=== PATIENT | male | born 1985 | race Caucasian/White ===

== ENCOUNTER 2023-10-20 10:20 | Emergency (ER) | payer MEDICAID, SELFPAY ==
--- NOTE | ~2023-10-20 | CT_ITS ---
EXAMINATION: CT ABDOMEN AND PELVIS WITH CONTRAST CLINICAL INFORMATION: Abdominal pain, weight loss, question tumor COMPARISON: None available. TECHNIQUE: Multidetector volumetric images were obtained from the superior aspect of the liver through the pubic symphysis following administration 85 mL of Omnipaque 350 intravenous contrast. Sagittal and coronal reformatted images were obtained on the technologist's workstation. Oral contrast: Yes This CT examination was performed using dose optimization techniques as appropriate, variously including the following: *Automated exposure control *Adjustment of mA and/or kV according to patient size (this includes techniques or standardized protocols for targeted exams where dose is matched to indication/reason for exam; i.e. extremities or head) *Use of iterative reconstruction technique DLP: 517 mGy-cm FINDINGS: LUNG BASES: The visualized lung bases are unremarkable. LIVER, GALLBLADDER, AND BILIARY TREE: The liver is normal in size, shape, and attenuation. No focal hepatic lesion or biliary ductal dilatation is present. The gallbladder is unremarkable with no evidence of radiopaque gallstones, gallbladder wall thickening, or obvious pericholecystic inflammatory changes. PANCREAS: Unremarkable. SPLEEN: Unremarkable. ADRENAL GLANDS: Unremarkable. KIDNEYS AND URETERS: Bilateral nephrograms are symmetric. No hydronephrosis or obstructing calculus identified. Cortical scarring noted in the lateral left kidney. BLADDER: Partially distended and grossly unremarkable. GASTROINTESTINAL TRACT: No evidence of bowel obstruction. Evaluation for wall thickening in some segments of the colon is limited due to luminal collapse. There is soft tissue prominence within a segment of the proximal ascending colon which is not fully distended, for which underlying colonic mass cannot be excluded. The appendix is unremarkable. No free fluid or free air is seen. ABDOMINAL WALL: No significant hernia is appreciated. LYMPH NODES: Normal. VASCULAR: Unremarkable. PELVIC VISCERA: Unremarkable. OSSEOUS STRUCTURES: Unremarkable. CT/CT abdomen pelvis w IV con IMPRESSION: 1. Soft tissue prominence within a segment of the proximal ascending colon which is not fully distended, for which underlying colonic mass cannot be excluded. Correlation with colonoscopy is advised. 2. No additional acute findings identified in the abdomen/pelvis.
[2023-10-20 10:29] VITALS: BP 133/83; PULSE 94; RESP 18; TEMP 36.8; O2SAT 98; BMI 25.9
[2023-10-20 11:00] LABS: MANUAL DIFF FLAG NO
[2023-10-20 11:01] LABS: Appearance Urine Clear; Color Urine Yellow; Glucose Urine UA Negative (Negative); Leukocyte Esterase Urine Negative (Negative); Nitrite Urine Negative (Negative); Urine Blood Negative (Negative); Urine Ketones 15 mg/dL (Negative); Urine Protein Negative (Neg-Trace)
[2023-10-20 11:03] LABS: Basophils Percent Auto 0.4 % (0-2); Eosinophils Percent Auto 0.4 % (0-4); Hematocrit 44.2 % (42.0-52.0); Hemoglobin 14.9 g/dl (14.0-18.0); Imm Gran Abs Auto 0.01 X10*3/uL (0.00-0.03); Imm Gran Pct Auto 0.2 % (0.0-0.4); Lymphocytes Absolute Auto 0.9 X10*3/uL (1.2-4.9); Lymphocytes Percent Auto 16.7 % (20-40); Mean Corpuscular HGB Conc 33.7 g/dl (31.0-36.0); Mean Corpuscular Hemoglobin 26.8 pg (27.0-33.0); Mean Corpuscular Volume 79.6 fL (80.0-98.0); Mean Platelet Volume 8.8 fL (9.4-12.4); Monocytes Absolute Auto 0.3 X10*3/uL (0.1-1.2); Monocytes Percent Auto 4.9 % (2-11); Neutrophils Absolute Auto 3.9 x10*3/uL (2.0-8.3); Neutrophils Percent Auto 77.4 % (45-73); Platelet Count 256 X10*3/uL (160-400); Red Blood Count 5.55 X10*6/uL (4.60-5.80); Red Cell Distribution Width 13.4 % (11.0-16.0); White Blood Count 5.1 X10*3/uL (4.8-10.8)
[2023-10-20 11:17] LABS: Alanine Aminotransferase 19 U/L (0-40); Albumin Level 4.5 g/dL (3.5-5.0); Alkaline Phosphatase 63 U/L (39-117); Anion Gap 14 (12-20); Aspartate Amino Transferase 21 U/L (5-37); Bilirubin Total 0.7 mg/dL (0.0-1.0); Blood Urea Nitrogen 11 mg/dL (9-16); Calcium 10.1 mg/dL (8.4-10.2); Carbon Dioxide 27 mmol/L (22-29); Chloride 105 mmol/L (96-108); Creatinine Clr Calc Pharmacy 113.6; Estimated Glomerular Filt Rate > 60; Glucose Random 116 mg/dL (60-115); Sodium 142 mmol/L (135-145); Total Protein 7.6 g/dL (6.5-8.0)
[2023-10-20 19:15] LABS: Influenza A PCR NEGATIVE (Negative); Influenza B PCR NEGATIVE (Negative); Resp Syncy Virus RNA Qual PCR NEGATIVE (Negative); SARS COV2 PCR INHOUSE NEGATIVE (Negative)
--- NOTE | 2023-10-20 20:16 | ED_ITS ---
HPI - General Adult General Chief complaint: General Medical Stated complaint: vomiting nausea dizzy Time Seen by Provider: 10/20/23 19:47 Source: patient Mode of arrival: ambulatory Limitations: no limitations History of Present Illness HPI narrative: 38-year-old male presents to ED for abdominal pain poor p.o. intake and 40 lb weight loss in 2 months. Patient denies any blood in stool. Patient admits to nausea and vomiting. Patient denies any fever or chills. Patient denies any history of HIV, hep C, or history of cancer. 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 Patient has been in prison for the past 18 years Related Data Previous Rx's ?Medication ?Instructions ?Recorded naproxen 500 mg tablet 500 mg PO BID PRN pain 7 days #14 10/21/23 tabs ondansetron HCl 4 mg tablet 4 mg PO Q6H PRN nausea and 10/21/23 vomiting 2 days #8 tabs Allergies Allergy/AdvReac Type Severity Reaction Status Date / Time No Known Allergies Allergy Verified 10/20/23 10:30 Review of Systems 2 Review of Systems: abdominal pain, weight loss, nausea and vomitting Yes all other systems are reviewed and are negative PMFSH Social History Social History Smoked in Last 30 Days: No Use of substances other than those prescribed or required for medical reasons: No Advance Directives: No Advance Directives Information Provided: No Do you have a plan to hurt others: No Plan Physical Exam ED Vital Signs: Vital Signs - 24 hr 10/20/23 10:29 10/20/23 23:50 Temperature 98.3 F 98.0 F Pulse Rate 94 55 Respiratory Rate 18 16 Blood Pressure 133/83 111/53 L Pulse Oximetry 98 95 Oxygen Delivery Method Room Air Room Air BMI result Body Mass Index 25.9 Const General: cooperative, healthy appearing, comfortable, no acute distress, well developed, alert, awake and Physically active Orientation/consciousness: oriented to person, oriented to place, oriented to time and patient oriented x3 HENMT Head: Yes normal to inspection, Yes No palpable skull fracture present, Yes normocephalic and Yes atraumatic Eyes General: appearance normal, both eyes and all related structures Neck Neck: Yes normal visual inspection, Yes full ROM, Yes no lymphadenopathy, Yes no meningeal signs, Yes trachea midline, Yes supple, No anterior neck swelling and No tender Chest Chest palpation & inspection: normal inspection of the chest and normal palpation of entire chest wall Resp Effort & Inspection: normal respiratory effort and able to speak in complete sentences Auscultation: clear to auscultation bilaterally Cardio Jugular venous distension: no JVD Heart sounds: S1 normal heart sound present and S2 normal heart sound present GI Inspection: Yes normal to inspection Palpation (GI): Soft to palpation, not firm, nontender, no guarding and not rigid General: No CVA tenderness and Yes no CVA tenderness Back/Spine/Pelvis Back: no CVA tenderness, No CVA tenderness and No back tenderness Skin General skin exam: no rashes or lesions noted, elasticity normal and turgor normal Neuro General: oriented to person, oriented to place, oriented to time, patient oriented x3, gait normal, tone normal, moves all extremities, Normal light touch and pain sensation, no meningeal signs, no focal motor deficits, CN's II-XI intact bilaterally and normal sensation to monofilament Extrem General: Yes normal to inspection, Yes full ROM and Yes capillary refill normal Psych Appearance: grossly normal, well kempt and not disheveled Medications Administered Discontinued Medications Generic Name Dose Route Start Last Admin Trade Name Freq PRN Reason Stop Dose Admin Diatrizoate Meglum/Diatrizoate Sod 30 ml 10/20/23 22:49 10/20/23 22:49 Diatrizoate Meglumine, Sodium 30 Ml Solution PO 10/20/23 22:50 30 ml ONCE ONE Administration Iohexol 85 ml 10/20/23 22:53 10/20/23 22:54 Iohexol 350 Mg/Ml 100 Ml Infus..Btl IV 10/20/23 22:54 85 ml ONCE ONE Administration Ondansetron HCl 4 mg 10/21/23 02:12 10/21/23 02:25 Ondansetron Odt 4 Mg Tab.Rapdis TRANSLINGU 10/21/23 02:13 4 mg ONCE ONE Administration Medical Decision Making Medical Decision Making MDM Narrative: 38-year-old male with abdominal pain and weight loss for the past 2 months. Patient apparently not in any distress but due to weight loss abdominal pain was sent for abdominal CT scan to check for any cancer/mass. 1:38am: Patient's abdominal CT scan shows possible colonic mass. Abdomen is benign. Patient made aware of this. Patient informed CT scan reading states she will need a colonoscopy. Patient given copy of CAT scan told to follow-up with primary care provider and sewage reticulation drafting officer. Patient has explained worrisome signs and informed to return to the ED if he has them Differential Diagnosis Differential Diagnoses: The differential diagnosis associated with the presentation includes (colonic mass, Cancer) Admission/Observation Consideration of admission/observation: Escalation of care including admission/observation considered Lab Data MDM Lab Attestation statement: I reviewed the patient's lab results. 10/20/23 10:54 10/20/23 10:54 Labs: Lab Results 10/20/23 10/20/23 10/20/23 Range/Units 10:54 10:55 18:22 WBC 5.1 (4.8-10.8) X10*3/uL RBC 5.55 (4.60-5.80) X10*6/uL Hgb 14.9 (14.0-18.0) g/dl Hct 44.2 (42.0-52.0) % MCV 79.6 L (80.0-98.0) fL MCH 26.8 L (27.0-33.0) pg MCHC 33.7 (31.0-36.0) g/dl RDW 13.4 (11.0-16.0) % Plt Count 256 (160-400) X10*3/uL MPV 8.8 L (9.4-12.4) fL Immature Gran % (Auto) 0.2 (0.0-0.4) % Neut % (Auto) 77.4 H (45-73) % Lymph % (Auto) 16.7 L (20-40) % [place] % (Auto) 4.9 (2-11) % Eos % (Auto) 0.4 (0-4) % Baso % (Auto) 0.4 (0-2) % Lymph # (Auto) 0.9 L (1.2-4.9) X10*3/uL [place] # (Auto) 0.3 (0.1-1.2) X10*3/uL Eos # (Auto) 0.0 (0.0-0.4) X10*3/uL Baso # (Auto) 0.0 (0.0-0.2) X10*3/uL Abs Immat Gran (auto) 0.01 (0.00-0.03) X10*3/uL Absolute Neuts (auto) 3.9 (2.0-8.3) x10*3/uL Absolute Nucleated RBC 0.000 (0.0-0.012) X10*3/uL Nucleated RBC % (auto) 0.0 (0.0-0.2) /100WBC Sodium 142 (135-145) mmol/L Potassium 4.0 (3.3-5.1) mmol/L Chloride 105 (96-108) mmol/L Carbon Dioxide 27 (22-29) mmol/L Anion Gap 14 (12-20) BUN 11 (9-16) mg/dL Creatinine 0.92 (0.5-1.4) mg/dL Estim Creat Clear Calc 113.6 Estimated GFR > 60 Random Glucose 116 H (60-115) mg/dL Calcium 10.1 (8.4-10.2) mg/dL Total Bilirubin 0.7 (0.0-1.0) mg/dL AST 21 (5-37) U/L ALT 19 (0-40) U/L Alkaline Phosphatase 63 (39-117) U/L Total Protein 7.6 (6.5-8.0) g/dL Albumin 4.5 (3.5-5.0) g/dL Urine Color Yellow Urine Appearance Clear Urine pH 6.0 (5.0-9.0) Ur Specific [place] 1.020 (1.005-1.025) Urine Protein Negative (Neg-Trace) mg/dL Urine Glucose (UA) Negative (Negative) mg/dL Urine Ketones 15 (Negative) mg/dL Urine Blood Negative (Negative) Urine Nitrite Negative (Negative) Ur Leukocyte Esterase Negative (Negative) Influenza Type A (PCR) NEGATIVE (Negative) Influenza Type B (PCR) NEGATIVE (Negative) RSV RNA Qual (PCR) NEGATIVE (Negative) SARS-CoV-2 RNA (RT-PCR) NEGATIVE (Negative) Independent Interpretation I performed an independent interpretation of an: CT Scan Radiology Impression Discussion of test interpretation with radiology: I have reviewed the radiologist's reading. Independent Historian Clinical information obtained from an independent historian. History obtained from or confirmed by: Other (Patient) External Record Review External record reviewed: Other (prior viists) Discharge Plan Discharge Clinical Impression: Mass of colon Patient Disposition: Home, Self-Care Instructions: Abdominal Pain (ED) Additional Instructions: CT scan shows possible colonic mass. You will need to follow-up with outpatient provider, and sewage reticulation drafting officer for colonoscopy as recommended by radiologist. Return to the ED for chest pain, shortness of breath, abdominal pain, diarrhea, dysuria, hematuria, flank pain, symptoms. CT/CT abdomen pelvis w IV con IMPRESSION: 1. Soft tissue prominence within a segment of the proximal ascending colon which is not fully distended, for which underlying colonic mass cannot be excluded. Correlation with colonoscopy is advised. 2. No additional acute findings identified in the abdomen/pelvis. Prescriptions: New naproxen 500 mg tablet 500 mg PO BID PRN (Reason: pain) 7 Days Qty: 14 0RF ondansetron HCl 4 mg tablet 4 mg PO Q6H PRN (Reason: nausea and vomiting) 2 Days Qty: 8 0RF Referrals: [facility] [Provider Group] (CT scan shows possible colonic mass will need colonoscopy) Halie Ellison MD [Physician] - (CT scan shows possible colonic mass. Patient has weight loss with abdominal) Stand Alone Forms: Work/School Release Interventions: ED Discharge Assessment Last Done: 10/21/23 02:31 Discharge Date/Time: 10/21/23 02:32 Print Language: Danish
--- NOTE | 2023-10-20 20:57 | PC.NURSE ---
pt from home, a&ox4, respirations even and unlabored, reporting nausea and vomiting x1 week, reports he has had poor PO intake and has been throwing up bile. pt denies diarrhea at this time. pt abdomen soft, non tender to touch. 20G placed in left AC at this time.
[2023-10-20] MEDS: Diatrizoate Meglumine, Sodium 30 ML SOLUTION PO (22:49)
[2023-10-20] MEDS: iohexoL 350 MG/ML 100 ML INFUS..BTL 85 ML IV (22:54)
[2023-10-20 23:50] VITALS: BP 111/53; PULSE 55; RESP 16; TEMP 36.7; O2SAT 95
[2023-10-21] MEDS: Ondansetron ODT 4 MG TAB.RAPDIS TRANSLINGU (02:25)
[2023-10-21 02:31] VITALS: BP 118/68; PULSE 66; RESP 18; TEMP 36.9; O2SAT 98
== END 2023-10-21 02:32 | disposition home or self-care (01) ==
PROVIDERS: Physician Assistant Medical; Emergency Provider Emergency Medicine
DX: R11.2 Nausea with vomiting, unspecified (principal); K63.9 Disease of intestine, unspecified; R93.5 Abnormal findings on diagnostic imaging of other abdominal regions, including retroperitoneum; F19.11 Other psychoactive substance abuse, in remission; Z03.818 Encounter for observation for suspected exposure to other biological agents ruled out
CPT/HCPCS: 0241U; 36415; 74177; 80053; 81003; 85025; 99284; Q9967

== ENCOUNTER 2023-10-29 15:40 | Outpatient (REF) | payer MEDICAID, SELFPAY ==
[2023-11-02 09:23] LABS: H Pylori Breath Test Negative (Negative)
== END 2023-10-29 15:41 | disposition home or self-care (01) ==
LOC: HO.LNP 15:40
PROVIDERS: PCP Internal Medicine; Visit Provider Nurse Practitioner Family
DX: K21.9 Gastro-esophageal reflux disease without esophagitis (principal); K59.1 Functional diarrhea; K63.9 Disease of intestine, unspecified; R10.13 Epigastric pain; R11.2 Nausea with vomiting, unspecified; E55.9 Vitamin D deficiency, unspecified
CPT/HCPCS: 83013; 99212

== ENCOUNTER 2023-10-29 15:40 | Outpatient (AMB) | payer MEDICAID, SELFPAY ==
--- NOTE | 2023-10-29 15:51 | A.OFFVIS_ITS ---
Vital Signs 10/29/23 15:52 Height 5 ft 11 in Weight 180 lb BMI 25.1 BP 107/69 Blood Pressure Location Lt brachial Position Sitting Pulse 67 Intake Visit Reasons: Colonic MAss Intake Note: Luciano presents in the office as a new patient for a colonic mass. CC: states that he was diagnosed with a mass, nausea, vomiting, constantly - cannot eat or sleep and he is losing weight. Has pains on the left side of his back and flank area. He states that he has urine that has blood in it and that he is dealing with dizziness. States that he has diarrhea. Lost 40lbs in the last month and a half and not enough fluids and nutrition going into his body. Allergies No Known Allergies Allergy (Verified 10/29/23 15:53) HPI HPI Colonic MAss: Details: 2-year-old male with no significant past medical history except for opioid use, clean for the last 2 years is here today for initial consultation. Patient is accompanied by his significant other. Patient was seen October 19 in the ER for severe abdominal pain. Patient has been suffering with epigastric pain inability to eat, nausea and vomiting for the past month and a half. Patient states that he lost 40 lb since then. Patient reports that he is unable to eat anything. No matter what he eats it causes epigastric discomfort, nausea and vomiting. Patient reports postprandial loose stools. Patient denies melena, hematochezia. Patient had no leukocytosis when seen in the ER on October 19. Normal liver enzymes. Lipase was not checked. Patient had CT scan that showed possible mass in ascending colon. Patient denies any family history of colorectal cancer. No issues with anesthesia in the past. Patient is not on any anticoagulation medication. No history of sleep apnea. [facility] [place] Family History (Updated 10/29/23 @ 15:54 by MICHELLE Ramos) Paternal Grandfather Colon cancer Paternal Grandfather Colon cancer Paternal Aunt Colon cancer Review of Systems Const Denies weight gain and Denies weight loss ENT Reports no additional complaints, Denies dysphagia and Denies odynophagia Card Reports no additional complaints Resp Reports no additional complaints GI Reports abdominal pain (Epigastric and left upper quadrant), Denies belching, Denies melena, Denies bloating, Denies change in bowel habits, Denies dysphagia, Denies excessive flatus, Reports dyspepsia, Reports heartburn, Denies diarrhea, Reports loose stools, Reports nausea, Denies odynophagia and Reports vomiting Reports no additional complaints Musc Reports no additional complaints Neuro Reports no additional complaints Psych Reports no additional complaints Endo Reports no additional complaints Physical Exam Vital Signs: BMI result Body Mass Index 25.1 Const General: healthy appearing, no acute distress and well developed Nutritional Appearance: well nourished Orientation/consciousness: patient oriented x3 Resp Effort & Inspection: normal respiratory effort, able to speak in complete sentences, no tracheal deviation and symmetric chest movement Auscultation: clear to auscultation bilaterally Cardio Rate: regular rate GI Inspection: Yes normal to inspection and No distended Palpation (GI): Soft to palpation, not firm, nontender and No hepatosplenomegaly present Auscultation: normal bowel sounds General: Yes no CVA tenderness Back/Spine/Pelvis Back: no CVA tenderness Skin General skin exam: elasticity normal, turgor normal and dry skin Neuro General: patient oriented x3 Psych Appearance: grossly normal Mental Status: mental status grossly normal Results Reviewed Results Reviewed: CT OF ABDOMEN AND PELVIS FINDINGS: LUNG BASES: The visualized lung bases are unremarkable. LIVER, GALLBLADDER, AND BILIARY TREE: The liver is normal in size, shape, and attenuation. No focal hepatic lesion or biliary ductal dilatation is present. The gallbladder is unremarkable with no evidence of radiopaque gallstones, gallbladder wall thickening, or obvious pericholecystic inflammatory changes. PANCREAS: Unremarkable. SPLEEN: Unremarkable. ADRENAL GLANDS: Unremarkable. KIDNEYS AND URETERS: Bilateral nephrograms are symmetric. No hydronephrosis or obstructing calculus identified. Cortical scarring noted in the lateral left kidney. BLADDER: Partially distended and grossly unremarkable. GASTROINTESTINAL TRACT: No evidence of bowel obstruction. Evaluation for wall thickening in some segments of the colon is limited due to luminal collapse. There is soft tissue prominence within a segment of the proximal ascending colon which is not fully distended, for which underlying colonic mass cannot be excluded. The appendix is unremarkable. No free fluid or free air is seen. ABDOMINAL WALL: No significant hernia is appreciated. LYMPH NODES: Normal. VASCULAR: Unremarkable. PELVIC VISCERA: Unremarkable. OSSEOUS STRUCTURES: Unremarkable. CT/CT abdomen pelvis w IV con IMPRESSION: 1. Soft tissue prominence within a segment of the proximal ascending colon which is not fully distended, for which underlying colonic mass cannot be excluded. Correlation with colonoscopy is advised. 2. No additional acute findings identified in the abdomen/pelvis. Assessment & Plan Assessment & Plan (1) Postprandial epigastric pain: Code(s): R10.13 - Epigastric pain (2) GERD (gastroesophageal reflux disease): Code(s): K21.9 - Gastro-esophageal reflux disease without esophagitis Qualifiers: Esophagitis presence: esophagitis presence not specified Qualified Code(s): K21.9 - Gastro-esophageal reflux disease without esophagitis (3) Nausea: Code(s): R11.0 - Nausea (4) Vomiting: Code(s): R11.10 - Vomiting, unspecified Qualifiers: Vomiting type: unspecified Nausea presence: with nausea Qualified Code(s): R11.2 - Nausea with vomiting, unspecified (5) Diarrhea: Code(s): R19.7 - Diarrhea, unspecified Qualifiers: Diarrhea type: functional diarrhea Qualified Code(s): K59.1 - Functional diarrhea (6) Colon abnormality: Code(s): K63.9 - Disease of intestine, unspecified Plan Patient will be scheduled to go for colonoscopy. We were able to schedule him for next with Dr. Rojas. Patient will also go for upper endoscopy as he is had experiencing nausea and vomiting and epigastric discomfort. We will rule out gastritis, duodenitis, esophagitis, gastric or peptic ulcer, H pylori, Singleton's. Patient is not taking any PPIs or H2 blockers at this time. Patient will start omeprazole in the morning half an hour before breakfast and sucralfate at noon time and bedtime.. Patient will have H pylori breath test d one in the office today. Will rule out chronic pancreatitis, celiac, pancreatic insufficiency. Will check thyroid and vitamin D, B12 and folate. What to expect before during and after procedure discussed with him and his girlfriend. Stressed the importance of good bowel prep and clear liquid diet. Patient will follow-up with us after the procedure. Both patient and his girlfriend are agreeable to plan of care and verbalizes understanding of instructions. They were given the opportunity to ask questions and all questions answered. Thank you for allowing me to participate in his care Orders: Orders Pancreatic Elastase-1 Today R10.9 - Unspecified abdominal pain Lipase Today R10.9 - Unspecified abdominal pain TSH reflex Free T4 Today K59.1 - Functional diarrhea, R11.0 - Nausea Transglutaminase Ab IgG Today R10.9 - Unspecified abdominal pain Transglutaminase IgA Today R10.9 - Unspecified abdominal pain Vitamin D 25-OH (D2 and D3) Today E55.9 - Vitamin D deficiency, unspecified H Pylori Breath Test Today K21.9 - Gastro-esophageal reflux disease without esophagitis Vitamin B12 and Folate Today R19.7 - Diarrhea, unspecified Medications: New bisacodyl (Dulcolax (bisacodyl)) take 4 tabs at noon the day before your colonoscopy 20 mg (4 x 5 mg) PO ONCE 1 day 4 tabs 0RF Z12.11 - Encounter for screening for malignant neoplasm of colon omeprazole 40 mg PO DAILY 60 caps 3RF K21.9 - Gastro-esophageal reflux disease without esophagitis sucralfate 1 g PO BID 60 tabs 2RF R19.7 - Diarrhea, unspecified polyethylene glycol 3350 (Miralax) As directed by gastroenterology department at [facility] 238 grams PO ONCE 238 grams 0RF K63.9 - Disease of intestine, unspecified Coding Level of Care Code New Pt Level 4 (86644) Diagnoses Postprandial epigastric pain R10.13 Gastroesophageal reflux disease, unspecified whether esophagitis present K21.9 Esophagitis presence: esophagitis presence not specified Nausea R11.0 Nausea and vomiting, unspecified vomiting type R11.2 Vomiting type: unspecified Nausea presence: with nausea Functional diarrhea K59.1 Diarrhea type: functional diarrhea Colon abnormality K63.9 Time Spent (min) 45 Comment 30 minutes spent with patient and additional 15 minutes spent reviewing his records
[2023-10-29 15:52] VITALS: BP 107/69; PULSE 67; BMI 25.1
== END 2023-10-29 16:32 | disposition home or self-care (01) ==
PROVIDERS: PCP Internal Medicine; Visit Provider Nurse Practitioner Family
DX: R10.13 Epigastric pain (principal); K21.9 Gastro-esophageal reflux disease without esophagitis; R11.0 Nausea; R11.2 Nausea with vomiting, unspecified; K59.1 Functional diarrhea; K63.9 Disease of intestine, unspecified
CPT/HCPCS: 99204

== ENCOUNTER 2023-11-04 11:55 | Outpatient (REF) | payer MEDICAID, SELFPAY ==
[2023-11-04 13:46] LABS: Lipase 43 U/L (8-78)
[2023-11-04 13:52] LABS: TSH reflex Free T4 0.55 uIU/mL (0.32-4.0)
[2023-11-04 14:18] LABS: Folate 5.1 ng/mL (> or = 4.0); Vitamin B12 425 pg/mL (200-900)
[2023-11-07 13:09] LABS: Transglutaminase Ab IgG <1.0 U/mL; Transglutaminase IgA <1.0 U/mL
[2023-11-08 14:24] LABS: Vitamin D 25-OH, D2 5 ng/mL; Vitamin D 25-OH, D3 18 ng/mL; Vitamin D 25-OH, Total 23 ng/mL (30-100)
== END 2023-11-04 11:56 | disposition home or self-care (01) ==
LOC: HO.LAB 11:55
PROVIDERS: PCP Internal Medicine; Visit Provider Nurse Practitioner Family
DX: R10.9 Unspecified abdominal pain (principal); E55.9 Vitamin D deficiency, unspecified; R11.0 Nausea; K59.1 Functional diarrhea
CPT/HCPCS: 36415; 82306; 82607; 82746; 83690; 84443; 86364

== ENCOUNTER 2023-11-05 10:58 | Outpatient (REF) | payer MEDICAID, SELFPAY ==
[2023-11-13 19:58] LABS: Pancreatic Elastase-1 92 mcg/g
== END 2023-11-05 10:59 | disposition home or self-care (01) ==
LOC: HO.LNP 10:58
PROVIDERS: Visit Provider Nurse Practitioner Family
DX: R10.9 Unspecified abdominal pain (principal)
CPT/HCPCS: 82656

== ENCOUNTER 2023-11-06 07:09 | Day surgery (SDC) | payer MEDICAID, SELFPAY ==
[2023-11-05 07:48] VITALS: BMI 25.1
--- NOTE | 2023-11-05 11:44 | HO.ANESPROP2 ---
HPI - Anesthesia Eval Consult details Narrative: 38yo M for Colonoscopy Suboxone daily PMFSH Family History Family History (Updated 10/29/23 @ 15:54 by MICHELLE Ramos) Paternal Grandfather Colon cancer Paternal Grandfather Colon cancer Paternal Aunt Colon cancer Meds Allergies Allergy/AdvReac Type Severity Reaction Status Date / Time No Known Allergies Allergy Verified 10/29/23 15:53 Home Medications ?Medication ?Instructions ?Recorded ?Confirmed ?Last Taken ?Type buprenorphine 8 mg-naloxone 2 mg 2 film sublingual DAILY 10/29/23 Unknown History sublingual film (Suboxone) bupropion HCl 150 mg 24 hr tablet, 150 mg PO QAM 10/29/23 Unknown History extended release citalopram 20 mg tablet 20 mg PO QAM 10/29/23 Unknown History Exam Height,Weight and Vital Signs: Height 5 ft 11 in Weight 81.647 kg Pertinent Lab Results Pertinent Lab Results: Laboratory Tests 10/20/23 10:54 WBC 5.1 Hgb 14.9 Hct 44.2 Plt Count 256 Sodium 142 Potassium 4.0 Chloride 105 Carbon Dioxide 27 BUN 11 Creatinine 0.92 Assessment and Plan Assessment Anesthesia Assessment: Chart Reviewed
[2023-11-06 07:28] VITALS: BP 108/75; PULSE 70; RESP 18; TEMP 36.4; O2SAT 97; BMI 23.7
[2023-11-06 07:32] VITALS: BMI 23.7
--- NOTE | 2023-11-06 07:42 | MHC.SHP ---
Pre-Procedural Eval Section A - 24 Hr Update-Section A only Date of Service: 11/06/23 Section B - Complete if H&P > 30 days Chief Complaint: Other specified diseases of intestine Details of Present Illness: Fh of CRC Relevant Family History (Specify if Yes): Yes Relevant Social History: Other (specify) (thc) Present Medications: see Short Stay Collaborative assessment Medical History: Significant History (depression) History of Previous Operations: No relevant previous surgery Allergies: Allergies Allergy/AdvReac Type Severity Reaction Status Date / Time No Known Allergies Allergy Verified 11/06/23 07:28 Review of Systems Sugical H&P ROS: Negative: Constitution, Cardiovascular, Respiratory, Neurological, Psychiatric, Hem-Onc, Allergic/Immunologic, Gastrointestinal, Genitourinary, Musculoskeletal, Integumentary, Endocrine and Eyes/Ears/Nose/Throat Exam Surgical H&P Exam: Normal: HEENT, Normal: Heart, Normal: Lungs, Normal: Extremities, Normal: Abdomen, Normal: Skin and Normal: Neurological Plan Diagnosis/Plan: Unchanged I have reviewed the history and physical and performed a pertinent physical examination on my patient. No changes have occurred unless specified. Time Spent With Patient Time: Total time managing care of this patient today ____ minutes.
[2023-11-06] MEDS: Lactated Ringers 1,000 ML 100 ML IVCONT (07:55)
[2023-11-06] MEDS: Albuterol Sulfate (0.083%) 2.5 MG/3 ML VIAL.NEB INHALE (08:00)
[2023-11-06 08:02] VITALS: PULSE 64; RESP 18; O2SAT 97
--- NOTE | 2023-11-06 08:25 | HO.OPN-COLON ---
Colonoscopy Operative Note Operative Note Date of Service: 11/06/23 Narrative: Operative Information Procedure Description: EGD, Colonoscopy Indication: nausea, abn colonic imaging Anesthesia: MAC FLEXIBLE TRANSORAL UPPER GASTROINTESTINAL ENDOSCOPY AND COLONOSCOPY PROCEDURE NOTE UPPER ENDOSCOPY Consent: Indications for the procedure and potential complications of bleeding, perforation, reaction to medications and missed diagnosis were discussed with the patient and informed consent was obtained. Instrument: Olympus GIF H 190 J mid size upper endoscope Monitoring: Vital signs and clinical assessment, continuous EKG monitoring, Pulse oximetry, Carbon Dioxide monitoring and blood pressure monitoring were done throughout the procedure. Procedure: The patient was placed in the left lateral decubitis position and pre-procedure medications were administered and a bite block was placed. The endoscope was inserted into the mouth and advanced under direct vision to the third part of duodenum. A careful inspection was made as the upper endoscope was withdrawn including a retroflexed examination of the proximal stomach; Findings and interventions are described below. Findings: Larynx:normal Esophagus: GE junction at 40 cm, diaphragm hiatus at 42 cm, consistent with 2 cm sliding hiatal hernia with esophagitis noted at GEJ, bx taken, also possible short segment barretts, bx taken from distal and proximal esophagus. Stomach: Mild erythema. Biopsies were obtained. Grade 2 flap valve on retroflexed examination of the cardia. Duodenum: Normal bulb and descending duodenum, bx taken Intervention: Biopsies as noted above, COLONOSCOPY Instrument: Olympus variable stiffness pediatric scope 190L Colonoscopy Monitoring: Vital signs and clinical assessment, continuous EKG monitoring, Pulse oximetry, Carbon Dioxide monitoring and blood pressure monitoring were done throughout the procedure. Colon withdrawal time was 10 minutes. Procedure: The patient was placed in the left lateral decubitis position and pre-procedure medications were administered. After a digital rectal examination of the ano-rectum, the video colonoscope was inserted into the rectum and advanced through the colon to the cecum/TI. The colonoscope was slowly withdrawn in a retrograde panoramic fashion and the colon mucosa was carefully examined including a retroflexed view of the rectum. Findings and interventions are described below. Procedure Difficulty:moderate Findings: Terminal Ileum-normal Cecum:normal right sided retroflexion-- normal, no masses seen Ascending Colon: normal Transverse Colon -normal Descending Colon:normal Sigmoid Colon: normal Rectum: Retroflexion with small internal hemorrhoids, grade I Anorectum - normal Colon preparation: [place] Bowel Preparation Scale Right colon; 2 Transverse colon: 2 Left colon; 1-2 (0 = Unprepared colon segment with mucosa not seen due to solid stool that cannot be cleared. 1 = Portion of mucosa of the colon segment seen, but other areas of the colon segment not well seen due to staining, residual stool and/or opaque liquid. 2 = Minor amount of residual staining, small fragments of stool and/or opaque liquid, but mucosa of colon segment seen well. 3 = Entire mucosa of colon segment seen well with no residual staining, small fragments of stool or opaque liquid) Impression and Post Procedure Diagnosis: Endoscopy Findings: small hiatal hernia esophagitis possible barretts Colonoscopy Findings: internal hemorrhoids Plan: Await Pathology results Repeat Colonoscopy in 5 years due to FH of CRC and fair prep on left or earlier if clinically indicated High fiber diet leaflet avoid straining at stool, epsom salts and sitz bath, anusol supps or cream if ongoing sx, consider GES and cannabis abstinence trial Above findings were reviewed with the patient and relevant handouts were provided if indicated.
[2023-11-06 09:15] VITALS: BP 114/65; PULSE 66; RESP 16; TEMP 36.4; O2SAT 97
[2023-11-06 09:30] VITALS: BP 127/77; PULSE 65; RESP 18; TEMP 36.4; O2SAT 99
== END 2023-11-06 10:12 | disposition home or self-care (01) ==
PROVIDERS: Visit Provider Internal Medicine Gastroenterology
PROC: (CPT 43239; principal; 2023-11-06 08:20)
DX: K29.60 Other gastritis without bleeding (principal); K21.00 Gastro-esophageal reflux disease with esophagitis, without bleeding; K44.9 Diaphragmatic hernia without obstruction or gangrene; R93.3 Abnormal findings on diagnostic imaging of other parts of digestive tract; K64.0 First degree hemorrhoids; K63.89 Other specified diseases of intestine; R11.2 Nausea with vomiting, unspecified; R13.10 Dysphagia, unspecified; R19.7 Diarrhea, unspecified; F12.90 Cannabis use, unspecified, uncomplicated; F17.210 Nicotine dependence, cigarettes, uncomplicated; Z86.010 Personal history of colon polyps; F11.20 Opioid dependence, uncomplicated; Z79.899 Other long term (current) drug therapy
CPT/HCPCS: 43239; 45378; 88305; 88313; 88342; 94640; J1596; J2704

== ENCOUNTER → 2023-11-06 07:09 | Outpatient (BNV) | payer MEDICAID, SELFPAY | PROVIDERS: Visit Provider Internal Medicine Gastroenterology | DX: R11.0 Nausea (principal); R93.3 Abnormal findings on diagnostic imaging of other parts of digestive tract; K20.90 Esophagitis, unspecified without bleeding; K29.70 Gastritis, unspecified, without bleeding; K64.0 First degree hemorrhoids | CPT/HCPCS: 43239; 45378 ==

== ENCOUNTER 2023-12-26 10:04 | Outpatient (REF) | payer MEDICAID, SELFPAY ==
[2023-12-29 04:50] LABS: Syphilis Screen Nonreactive (Nonreactive)
[2023-12-29 05:26] LABS: HBS Num1 > 1000.00 mIU/mL (0-7.99); HBc Num1 0.08 S/CO (0.00-0.79); HBsAGNum1 0.25 S/CO (0.00-0.99); HIV AB/AG Nonreactive (Nonreactive); HIV Num 1 0.07 S/CO (0.00-0.99); Hepatitis A Antibody IgM 0.14 Index (0-0.79); Hepatitis B Core Antibody Nonreactive (Nonreactive); Hepatitis B Surface Antigen Negative (Negative); ~HepC Num1 0.08 S/CO (0.00-0.79); ~Hepatitis A Antibody IgM Nonreactive (Nonreactive); ~Hepatitis B Surface Antibody REACTIVE (Nonreactive); ~Hepatitis C Antibody Nonreactive (Nonreactive)
== END 2023-12-26 10:05 | disposition home or self-care (01) ==
LOC: HO.LAB 10:04
PROVIDERS: Visit Provider Nurse Practitioner Family
DX: Z11.4 Encounter for screening for human immunodeficiency virus [HIV] (principal); R79.89 Other specified abnormal findings of blood chemistry; R11.0 Nausea; R11.10 Vomiting, unspecified; R10.13 Epigastric pain; K21.9 Gastro-esophageal reflux disease without esophagitis; R11.15 Cyclical vomiting syndrome unrelated to migraine; K59.1 Functional diarrhea; K63.9 Disease of intestine, unspecified
CPT/HCPCS: 36415; 86704; 86706; 86709; 86780; 86803; 87340; 87389; 99212

== ENCOUNTER 2023-12-26 10:04 | Outpatient (AMB) | payer MEDICAID, SELFPAY ==
--- NOTE | 2023-12-26 10:08 | MHC.OFFVIS ---
Vital Signs 12/26/23 10:10 Height 5 ft 11 in Weight 155 lb BMI 21.6 BP 96/56 L Blood Pressure Location Lt brachial Position Sitting Pulse 97 Intake Visit Reasons: s/p egd and colo Intake Note: Patient follow up for EGD/Colonoscopy Patient cc: dizzy, pain on upper abdominal, N/V, constipation, loosing a lot of weight and hot flashes. Allergies No Known Allergies Allergy (Verified 12/26/23 10:08) HPI HPI s/p egd and colo: Details: LAST VISIT Postprandial epigastric pain GERD (gastroesophageal reflux disease) Nausea Vomiting Diarrhea Colon abnormality Plan Patient will be scheduled to go for colonoscopy. We were able to schedule him for next with Dr. Rojas. Patient will also go for upper endoscopy as he is had experiencing nausea and vomiting and epigastric discomfort. We will rule out gastritis, duodenitis, esophagitis, gastric or peptic ulcer, H pylori, Singleton's. Patient is not taking any PPIs or H2 blockers at this time. Patient will start omeprazole in the morning half an hour before breakfast and sucralfate at noon time and bedtime.. Patient will have H pylori breath test done in the office today. Will rule out chronic pancreatitis, celiac, pancreatic insufficiency. Will check thyroid and vitamin D, B12 and folate. What to expect before during and after procedure discussed with him and his girlfriend. Stressed the importance of good bowel prep and clear liquid diet. Patient will follow-up with us after the procedure. Both patient and his girlfriend are agreeable to plan of care and verbalizes understanding of instructions. They were given the opportunity to ask questions and all questions answered. ? Thank you for allowing me to participate in his care Orders Orders Pancreatic Elastase-1 Today R10.9 Lipase Today R10.9 TSH reflex Free T4 Today K59.1, R11.0 Transglutaminase Ab IgG Today R10.9 Transglutaminase IgA Today R10.9 Vitamin D 25-OH (D2 and D3) Today E55.9 H Pylori Breath Test Today K21.9 Vitamin B12 and Folate Today R19.7 Medications New bisacodyl (Dulcolax (bisacodyl)) take 4 tabs at noon the day before your colonoscopy 20 mg (4 x 5 mg) PO ONCE 1 day 4 tabs 0RF Z12.11 omeprazole 40 mg PO DAILY 60 caps 3RF K21.9 sucralfate 1 g PO BID 60 tabs 2RF R19.7 polyethylene glycol 3350 (Miralax) As directed by gastroenterology department at [facility] 238 grams PO ONCE 238 grams 0RF K63.9 UPPER ENDOSCOPY AND COLONOSCOPY Findings: Larynx:normal Esophagus: GE junction at 40 cm, diaphragm hiatus at 42 cm, consistent with 2 cm sliding hiatal hernia with esophagitis noted at GEJ, bx taken, also possible short segment barretts, bx taken from distal and proximal esophagus. Stomach: Mild erythema. Biopsies were obtained. Grade 2 flap valve on retroflexed examination of the cardia. Duodenum: Normal bulb and descending duodenum, bx taken Intervention: Biopsies as noted above, Findings: Terminal Ileum-normal Cecum:normal right sided retroflexion-- normal, no masses seen Ascending Colon: normal Transverse Colon -normal Descending Colon:normal Sigmoid Colon: normal Rectum: Retroflexion with small internal hemorrhoids, grade I Anorectum - normal Colon preparation: [place] Bowel Preparation Scale Right colon; 2 Transverse colon: 2 Left colon; 1-2 (0 = Unprepared colon segment with mucosa not seen due to solid stool that cannot be cleared. 1 = Portion of mucosa of the colon segment seen, but other areas of the colon segment not well seen due to staining, residual stool and/or opaque liquid. 2 = Minor amount of residual staining, small fragments of stool and/or opaque liquid, but mucosa of colon segment seen well. 3 = Entire mucosa of colon segment seen well with no residual staining, small fragments of stool or opaque liquid) Impression and Post Procedure Diagnosis: Endoscopy Findings: small hiatal hernia esophagitis possible barretts Colonoscopy Findings: internal hemorrhoids Plan: Await Pathology results Repeat Colonoscopy in 5 years due to FH of CRC and fair prep on left or earlier if clinically indicated High fiber diet leaflet avoid straining at stool, epsom salts and sitz bath, anusol supps or cream if ongoing sx, consider GES and cannabis abstinence trial PATHOLOGY RESULTS Diagnosis A. Duodenum, biopsy: Duodenal mucosa with preserved villi and no specific change. B. Stomach, biopsy: Gastric and antral mucosa with focal minimal chronic inactive inflammation; negative for H pylori, intestinal metaplasia and dysplasia. C. Gastroesophageal junction, biopsy: Squamocolumnar mucosa with minimal chronic inflammation; negative for intestinal metaplasia and dysplasia. D. Esophagus, distal, biopsy: Squamous mucosa with focal intraepithelial neutrophils and eosinophils (up to 2 per high-power field) consistent with esophagitis; no columnar mucosa present. E. Esophagus, proximal, biopsy: Squamous mucosa with no specific change; no columnar mucosa present. TODAY'S VISIT Patient is here today for follow-up accompanied by his girlfriend to discuss upper endoscopy and colonoscopy results. Patient denies any ill effects from the prep, anesthesia or procedure itself. Patient had blood work done as well as stool study that showed low vitamin D level as well as show pancreatic insufficiency. Patient reports that Creon was helping him in the very beginning, however now it seems like it has not working. Patient reports that he is taking with food. Patient has immediate epigastric pain that radiates to his back, sharp stabbing and burning like pain any times he eats anything. Patient reports to be feeling nauseous, occasional vomiting. He states that he is moving his bowels without any trouble. He is however on Suboxone and had suboptimal prep to left side of his colon suggesting that possibly patient is not emptying his bowels well patient reports that he just started smoking marijuana to help him, however his symptoms are not getting better med affect are getting worse. Patient is still losing weight unable to keep anything down. Reports dizziness, fogginess and weakness. [facility] Surgical History Hx of colonoscopy History of esophagogastroduodenoscopy (EGD) Family History Paternal Grandfather Colon cancer Paternal Grandfather Colon cancer Paternal Aunt Colon cancer Social History Patient Tobacco Use Status: Current everyday Tobacco user Tobacco use type: Cigarette Cigarette Packs Per Day: 0.5 Cigarettes Per Day: 10.0 Review of Systems Const Denies weight gain and Reports weight loss ENT Reports no additional complaints, Reports dysphagia and Denies odynophagia Card Reports no additional complaints Resp Reports no additional complaints GI Reports abdominal pain (Epigastric and left upper quadrant), Denies belching, Denies melena, Reports bloating, Denies change in bowel habits, Reports constipation, Reports dysphagia, Denies excessive flatus, Reports dyspepsia, Reports heartburn, Denies diarrhea, Reports loose stools, Reports nausea, Denies odynophagia and Reports vomiting Reports no additional complaints Musc Reports no additional complaints Neuro Reports no additional complaints Psych Reports no additional complaints Endo Reports no additional complaints Physical Exam Vital Signs: Last Vital Signs Pulse 97 12/26/23 10:10 BP 96/56 L 12/26/23 10:10 BMI result Body Mass Index 21.6 Const General: healthy appearing and no acute distress Orientation/consciousness: patient oriented x3 Resp Effort & Inspection: normal respiratory effort, able to speak in complete sentences, no tracheal deviation and symmetric chest movement Auscultation: clear to auscultation bilaterally Cardio Rate: regular rate GI Inspection: Yes normal to inspection and No distended Palpation (GI): Soft to palpation, not firm, nontender and No hepatosplenomegaly present Auscultation: normal bowel sounds General: Yes no CVA tenderness Back/Spine/Pelvis Back: no CVA tenderness Skin General skin exam: elasticity normal, turgor normal and dry skin Neuro General: patient oriented x3 Psych Appearance: grossly normal Mental Status: mental status grossly normal Results Reviewed Results Reviewed: Laboratory Tests 10/20/23 10/29/23 11/04/23 10:54 16:30 12:15 RBC 5.55 Hgb 14.9 Hct 44.2 MCV 79.6 L MCH 26.8 L Lipase 43 Vitamin B12 425 25-OH Vitamin D Total 23 L Folate 5.1 TSH 0.55 Stool Pancreat Elastase Tiss Transglutamin IgG <1.0 Tiss Transglutamin IgA <1.0 H. pylori Breath Test Negative 11/05/23 08:00 RBC Hgb Hct MCV MCH Lipase Vitamin B12 25-OH Vitamin D Total Folate TSH Stool Pancreat Elastase 92 L Tiss Transglutamin IgG Tiss Transglutamin IgA H. pylori Breath Test Assessment & Plan Assessment & Plan (1) Postprandial epigastric pain: Code(s): R10.13 - Epigastric pain (2) GERD (gastroesophageal reflux disease): Code(s): K21.9 - Gastro-esophageal reflux disease without esophagitis Qualifiers: Esophagitis presence: without esophagitis Qualified Code(s): K21.9 - Gastro-esophageal reflux disease without esophagitis (3) Nausea: Code(s): R11.0 - Nausea (4) Vomiting: Code(s): R11.10 - Vomiting, unspecified Qualifiers: Vomiting type: cyclical vomiting syndrome unrelated to migraine Qualified Code(s): R11.15 - Cyclical vomiting syndrome unrelated to migraine (5) Diarrhea: Code(s): R19.7 - Diarrhea, unspecified Qualifiers: Diarrhea type: functional diarrhea Qualified Code(s): K59.1 - Functional diarrhea (6) Colon abnormality: Code(s): K63.9 - Disease of intestine, unspecified Plan Continues to have epigastric pain postprandially no matter what he eats. Unable to keep food down. Will start him on Nexium and stop omeprazole. Avoid dietary triggers, eat small meals and more often. Try to hold off on smoking marijuana for now and use capsaicin to help with epigastric pain and burning. Will do upper GI small-bowel study to check for reflux, hernia. Will check HIV, hepatitis study to rule out any infectious diseases. MRI of the head to check for cause of nausea, vomiting, dizziness and mental fogginess. Patient will be referred to dietitian to help with meal planning. For now patient was encouraged to try high caloric meals that include protein shakes. Patient does not like the consistency of protein shakes encouraged to add frozen foods like blueberries to change the consistency. Increase Creon to 2 capsules with meals. Zofran ordered for nausea. Patient will follow-up in our office in 2 months. He will call if his symptoms will get worse. Patient was also encouraged to go to ER if he is unable to keep food down for IV therapy. Both patient and his partner are agreeable to plan of care and verbalizes understanding of instructions. They were given the opportunity to ask questions and all questions answered. Thank you for allowing me to participate in his care Orders: Orders HIV Ab/Ag 12/26/23 R79.89 - Other specified abnormal findings of blood chemistry Syphilis Screen 12/26/23 R11.0 - Nausea, R11.10 - Vomiting, unspecified [place] upper GI small bowel 12/26/23 K21.9 - Gastro-esophageal reflux disease without esophagitis, R10.13 - Epigastric pain, R11.0 - Nausea, R11.10 - Vomiting, unspecified Hepatitis A,B,C Profile 12/26/23 R79.89 - Other specified abnormal findings of blood chemistry MR angio head wo/w con 12/26/23 R11.0 - Nausea, R11.10 - Vomiting, unspecified, R42 - Dizziness and giddiness, R51.9 - Headache, unspecified, R53.1 - Weakness Referrals [employer] Nutrition Referral R11.0 - Nausea, R63.4 - Abnormal weight loss Medications: New esomeprazole magnesium (Nexium) 40 mg PO DAILY 30 caps 5RF K21.9 - Gastro-esophageal reflux disease without esophagitis capsaicin 0.1% do not wash area for at least 30 min after application 1 appl topical BID 42.5 grams 0RF M79.2 - Neuralgia and neuritis, unspecified, R11.10 - Vomiting, unspecified Changed From [id number] 36,000-114,000- 180,000 unit (Creon) administer with meals and/or snacks 1 cap PO QID 120 caps 3RF K86.89 - Other specified diseases of pancreas To [id number] 36,000-114,000- 180,000 unit (Creon) administer with meals and/or snacks 2 caps PO QID 240 caps 3RF K86.89 - Other specified diseases of pancreas From ondansetron HCl 4 mg PO Q6H 2 days PRN 8 tabs 0RF nausea and vomiting To ondansetron HCl 4 mg PO Q6H PRN 30 tabs 0RF nausea and vomiting Discontinued bisacodyl (Dulcolax (bisacodyl)) take 4 tabs at noon the day before your colonoscopy Discontinued Reason: Patient no longer taking 20 mg (4 x 5 mg) PO ONCE 1 day 4 tabs 0RF Z12.11 - Encounter for screening for malignant neoplasm of colon omeprazole Discontinued Reason: Doctor's Order 40 mg PO DAILY 60 caps 3RF K21.9 - Gastro-esophageal reflux disease without esophagitis polyethylene glycol 3350 (Miralax) As directed by gastroenterology department at [facility] Discontinued Reason: Patient no longer taking 238 grams PO ONCE 238 grams 0RF K63.9 - Disease of intestine, unspecified Coding Level of Care Code Est Pt Level 4 (16099) Diagnoses Postprandial epigastric pain R10.13 Gastroesophageal reflux disease without esophagitis K21.9 Esophagitis presence: without esophagitis Nausea R11.0 Cyclical vomiting syndrome not associated with migraine R11.15 Vomiting type: cyclical vomiting syndrome unrelated to migraine Functional diarrhea K59.1 Diarrhea type: functional diarrhea Colon abnormality K63.9 Time Spent (min) 40 Comment 25 minutes spent with patient and additional 15 minutes spent reviewing his records
[2023-12-26 10:10] VITALS: BP 96/56; PULSE 97; BMI 21.6
== END 2023-12-26 10:38 | disposition home or self-care (01) ==
PROVIDERS: Visit Provider Nurse Practitioner Family
DX: R10.13 Epigastric pain (principal); K21.9 Gastro-esophageal reflux disease without esophagitis; R11.0 Nausea; R11.15 Cyclical vomiting syndrome unrelated to migraine; K59.1 Functional diarrhea; K63.9 Disease of intestine, unspecified
CPT/HCPCS: 99214

== ENCOUNTER 2024-01-05 19:25 | Outpatient (REF) | payer MEDICAID, SELFPAY ==
--- NOTE | ~2024-01-05 | MR_ITS ---
EXAMINATION: MR BRAIN WITHOUT CONTRAST CLINICAL INFORMATION: Nausea. COMPARISON: None available. TECHNIQUE: MRI of the brain was obtained using routine sequences without contrast. FINDINGS: No focal restricted diffusion is demonstrated to suggest acute or subacute cerebral ischemia. No evidence of acute or chronic hemorrhagic products on heme-sensitive imaging. Normal parenchymal signal characteristics. The ventricles are normal in morphology and size. No abnormal mass effect. No midline shift. Normal appearance of the pituitary gland. The suprasellar cistern remains widely patent. Normal positioning of the cerebellar tonsils. Normal arterial and venous vascular flow voids are present. Normal, homogeneous marrow signal. Mild mucosal thickening of the paranasal sinuses. Prominent right-sided and moderate left-sided mastoid/middle ear effusions. MR/MR head/brain wo con IMPRESSION: 1. No acute intracranial abnormalities. 2. Prominent right-sided and moderate left-sided mastoid/middle ear effusions. 3. No additional MRI abnormalities to explain the patient's symptoms.
== END 2024-01-05 19:26 | disposition home or self-care (01) ==
LOC: HO.MRI 19:25
PROVIDERS: Visit Provider Nurse Practitioner Family
DX: R51.9 Headache, unspecified (principal); R42 Dizziness and giddiness; R11.0 Nausea; R11.10 Vomiting, unspecified
CPT/HCPCS: 70551

== ENCOUNTER 2024-07-02 15:27 | Outpatient (AMB) | payer MEDICAID, SELFPAY ==
[2024-07-02 15:28] VITALS: BP 108/64; PULSE 100; O2SAT 97; BMI 23.3
--- NOTE | 2024-07-02 15:28 | A.OFFVIS_ITS ---
Vital Signs 07/02/24 15:28 Height 5 ft 11 in Weight 167 lb 1.766 oz BMI 23.3 BP 108/64 Blood Pressure Location Lt brachial Position Sitting Pulse 100 Pulse Source Pulse Oximeter Pulse Oximetry (%) 97 Oxygen Delivery Method Room Air Intake Visit Reasons: nausea discuss med Intake Note: ESTABLISHED PATIENT Reason; FUV. Discuss UGIs Changes/concerns? Pt no showed last UGIs appt. Pt experiencing new onset of sx. Losing weight, nausea. Accompanied by: Significant Other Allergies No Known Allergies Allergy (Verified 07/02/24 15:28) HPI HPI nausea discuss med: Details: LAST VISIT: Postprandial epigastric pain GERD (gastroesophageal reflux disease) Nausea Vomiting Diarrhea Colon abnormality Plan Continues to have epigastric pain postprandially no matter what he eats. Unable to keep food down. Will start him on Nexium and stop omeprazole. Avoid dietary triggers, eat small meals and more often. Try to hold off on smoking marijuana for now and use capsaicin to help with epigastric pain and burning. Will do upper GI small-bowel study to check for reflux, hernia. Will check HIV, hepatitis study to rule out any infectious diseases. MRI of the head to check for cause of nausea, vomiting, dizziness and mental fogginess. Patient will be referred to dietitian to help with meal planning. For now patient was encouraged to try high caloric meals that include protein shakes. Patient does not like the consistency of protein shakes encouraged to add frozen foods like blueberries to change the consistency. Increase Creon to 2 capsules with meals. Zofran ordered for nausea. Patient will follow-up in our office in 2 months. He will call if his symptoms will get worse. Patient was also encouraged to go to ER if he is unable to keep food down for IV therapy. Both patient and his partner are agreeable to plan of care and verbalizes understanding of instructions. They were given the opportunity to ask questions and all questions answered. ? Thank you for allowing me to participate in his care Orders Orders HIV Ab/Ag 12/26/23 R79.89 Syphilis Screen 12/26/23 R11.0, R11.10 FL upper GI small bowel 12/26/23 K21.9, R10.13, R11.0, R11.10 Hepatitis A,B,C Profile 12/26/23 R79.89 MR angio head wo/w con 12/26/23 R11.0, R11.10, R42, R51.9, R53.1 Referrals Primer Charging Tool Setter Nutrition Referral R11.0, R63.4 Medications New esomeprazole magnesium (Nexium) 40 mg PO DAILY 30 caps 5RF K21.9 capsaicin 0.1% do not wash area for at least 30 min after application 1 appl topical BID 42.5 grams 0RF M79.2, R11.10 Changed Changed From stbmcj-nreusreu-bsuxalg 36,000-114,000- 180,000 unit (Creon) administer with meals and/or snacks 1 cap PO QID 120 caps 3RF K86.89 Changed To rognqc-pjvnyrjw-bdoiqxp 36,000-114,000- 180,000 unit (Creon) administer with meals and/or snacks 2 caps PO QID 240 caps 3RF K86.89 Changed From ondansetron HCl 4 mg PO Q6H 2 days PRN 8 tabs 0RF nausea and vomiting Changed To ondansetron HCl 4 mg PO Q6H PRN 30 tabs 0RF nausea and vomiting Discontinued bisacodyl (Dulcolax (bisacodyl)) take 4 tabs at noon the day before your colonoscopy Discontinued Reason: Patient no longer taking 20 mg (4 x 5 mg) PO ONCE 1 day 4 tabs 0RF Z12.11 omeprazole Discontinued Reason: Doctor's Order 40 mg PO DAILY 60 caps 3RF K21.9 polyethylene glycol 3350 (Miralax) As directed by gastroenterology department at [facility] Discontinued Reason: Patient no longer taking 238 grams PO ONCE 238 grams 0RF K63.9 TODAY'S VISIT Patient is here today for requested visit. Patient still has not completed upper GI series and no-show for study back in February. We will try to set up patient for this testing. He reports that 2 months ago his symptoms started happening again. Patient reports that he has nausea occasional vomiting and epigastric pain postprandially. Patient reports that even when he drinks cold water he will have epigastric pain. Loss of appetite as he feels this pain all the time no matter what he eats. Previously check for H pylori that was negative. Currently patient is taking Nexium in the morning at the same time with sucralfate and mirtazapine. Patient reports that he wakes up with epigastric pain. He will have several bowel movements soon after he wakes up. Patient reports that he experiences lots of gas and abdominal cramping that usually goes away after bowel movement. Patient reports that his symptoms started right when his daughter was born. Patient reports dyspepsia without dysphagia or odynophagia. Patient denies any melena, hematochezia PFSH Surgical History Hx of colonoscopy History of esophagogastroduodenoscopy (EGD) Family History Paternal Grandfather Colon cancer Paternal Grandfather Colon cancer Paternal Aunt Colon cancer Social History Patient Tobacco Use Status: Current everyday Tobacco user Tobacco use type: Cigarette Cigarette Packs Per Day: 0.5 Cigarettes Per Day: 10.0 Review of Systems Const Denies weight gain and Reports weight loss ENT Reports no additional complaints, Reports dysphagia and Denies odynophagia Card Reports no additional complaints Resp Reports no additional complaints GI Reports abdominal pain (Epigastric and left upper quadrant), Denies belching, Denies melena, Reports bloating, Denies change in bowel habits, Reports constipation, Reports dysphagia, Denies excessive flatus, Reports dyspepsia, Reports heartburn, Denies diarrhea, Reports loose stools, Reports nausea, Denies odynophagia and Reports vomiting Reports no additional complaints Musc Reports no additional complaints Neuro Reports no additional complaints Psych Reports no additional complaints Endo Reports no additional complaints Physical Exam Vital Signs: Last Vital Signs Pulse 100 07/02/24 15:28 BP 108/64 07/02/24 15:28 Pulse Ox 97 07/02/24 15:28 Oxygen Delivery Method Room Air 07/02/24 15:28 BMI result Body Mass Index 23.3 Const General: healthy appearing and no acute distress Orientation/consciousness: patient oriented x3 Resp Effort & Inspection: normal respiratory effort, able to speak in complete sentences, no tracheal deviation and symmetric chest movement Auscultation: clear to auscultation bilaterally Cardio Rate: regular rate GI Inspection: Yes normal to inspection and No distended Palpation (GI): Soft to palpation, not firm, nontender and No hepatosplenomegaly present Auscultation: normal bowel sounds General: Yes no CVA tenderness Back/Spine/Pelvis Back: no CVA tenderness Skin General skin exam: elasticity normal, turgor normal and dry skin Neuro General: patient oriented x3 Psych Appearance: grossly normal Mental Status: mental status grossly normal Assessment & Plan Assessment & Plan (1) Postprandial epigastric pain: Code(s): R10.13 - Epigastric pain (2) GERD (gastroesophageal reflux disease): Code(s): K21.9 - Gastro-esophageal reflux disease without esophagitis Qualifiers: Esophagitis presence: esophagitis presence not specified Qualified Code(s): K21.9 - Gastro-esophageal reflux disease without esophagitis (3) Nausea: Code(s): R11.0 - Nausea (4) Vomiting: Code(s): R11.10 - Vomiting, unspecified Qualifiers: Vomiting type: unspecified Nausea presence: with nausea Qualified Code (s): R11.2 - Nausea with vomiting, unspecified (5) Diarrhea: Code(s): R19.7 - Diarrhea, unspecified Qualifiers: Diarrhea type: functional diarrhea Qualified Code(s): K59.1 - Functional diarrhea (6) Colon abnormality: Code(s): K63.9 - Disease of intestine, unspecified Plan Patient will continue Nexium in the morning half an hour before breakfast. Av oid dietary triggers. Try Benefiber with probiotics to help bulk the stools. Patient will take sucralfate in the afternoon and at bedtime. Mirtazapine 1-2 hours before taking sucralfate at night time. Zofran sent to pharmacy. Staff helped assisting with Appointment for upper GI series and is scheduled next week. Patient will follow-up with me in 6 weeks. He will call if he will continue to have symptoms or experience any additional GI concerning symptoms. Patient is agreeable to this plan and verbalizes understanding of instructions. He was given the opportunity to ask questions and all questions answered. Thank you for allowing me to participate in his care Medications: Refilled ondansetron HCl 4 mg PO Q6H PRN 20 tabs 0RF for nausea/vomiting K29.70 - Gastritis, unspecified, without bleeding, R11.0 - Nausea, R11.10 - Vomiting, unspecified Coding Level of Care Code Est Pt Level 4 (33281) Complex EM visit Add On G2211 Diagnoses Postprandial epigastric pain R10.13 Gastroesophageal reflux disease, unspecified whether esophagitis present K21.9 Esophagitis presence: esophagitis presence not specified Nausea R11.0 Nausea and vomiting, unspecified vomiting type R11.2 Vomiting type: unspecified Nausea presence: with nausea Functional diarrhea K59.1 Diarrhea type: functional diarrhea Colon abnormality K63.9 Time Spent (min) 40 Comment 25 minutes spent with patient and additional 10 minutes spent reviewing his records
== END 2024-07-02 15:57 | disposition home or self-care (01) ==
PROVIDERS: Visit Provider Nurse Practitioner Family
DX: R10.13 Epigastric pain (principal); K21.9 Gastro-esophageal reflux disease without esophagitis; R11.0 Nausea; R11.2 Nausea with vomiting, unspecified; K59.1 Functional diarrhea; K63.9 Disease of intestine, unspecified
CPT/HCPCS: 99214

== ENCOUNTER → 2024-07-02 15:27 | Outpatient (BNVA) | payer SELFPAY | PROVIDERS: Visit Provider Nurse Practitioner Family | DX: R10.13 Epigastric pain (principal); K21.9 Gastro-esophageal reflux disease without esophagitis; R11.2 Nausea with vomiting, unspecified; K59.1 Functional diarrhea; K63.9 Disease of intestine, unspecified | CPT/HCPCS: 99212 ==

== ENCOUNTER 2024-07-16 07:58 | Outpatient (REF) | payer MEDICAID, SELFPAY ==
--- NOTE | ~2024-07-16 | FL_ITS ---
EXAMINATION: XR FLUOROSCOPY UPPER GI WITH SMALL BOWEL SERIES. CLINICAL INFORMATION: Abdominal pain. Diarrhea. COMPARISON: CT scan October 2023 TECHNIQUE: Fluoroscopic air contrast upper GI examination was performed utilizing standard techniques with thin and thick barium and effervescent granules. Numerous spot images were obtained. This was followed by small bowel series using standard overhead radiographic techniques at specified intervals until contrast was seen in the right colon. Fluoroscopic spot radiographs were then obtained of the terminal ileum and any abnormal findings in the small bowel. FINDINGS: Dual and single contrast images of the esophagus demonstrate a mildly patulous esophagus, with a normal contour. There is a mild granular appearance of the esophageal mucosa, suggestive of esophagitis. Mild cricopharyngeal achalasia present. A tiny Zenker's diverticulum is present. No evidence of stricture, mass, or ulcerations identified. Esophageal peristalsis was normal. A small type I hiatal hernia is present. Gastroesophageal reflux is seen up to the thoracic inlet. Dual contrast and single contrast images of the stomach demonstrated a normal contour. The gastric rugal folds have a thickened appearance, suggestive of gastritis. There are multiple small foci of contrast pooling in the fundus of the stomach that likely represent small mucosal erosions. Contrast freely passed into the gastric antrum and duodenal bulb without delay. Single and air-contrast images of the duodenal bulb demonstrate no abnormality. The duodenal sweep has a normal appearance, course, and mucosal fold appearance. The imaged proximal jejunum has a normal fold pattern and caliber. SMALL BOWEL SERIES: Bag Machine Helper view demonstrates normal bowel gas pattern. Sequential imaging of the jejunum and ileum have normal caliber, fold pattern, and appearance without evidence of mass, stricture, or abnormal dilatation. Spot imaging of the terminal ileum demonstrates no abnormality. No dilution of contrast noted through progression. Contrast was seen in the right colon after 60 minutes. FLUOROSCOPY TIME: 5 minutes 9 seconds DOSE AREA PRODUCT: 3941 uGy-m2 (microgray-meter squared) FL/FL upper GI small bowel IMPRESSION: 1. Mildly patulous esophagus. 2. Mild granular appearance of the esophageal mucosa, suggestive of esophagitis. 3. Mild cricopharyngeal achalasia. 4. Tiny Zenker's diverticulum. 5. Small type I hiatal hernia with moderate to significant gastroesophageal reflux. 6. Thickened appearance of the gastric rugal folds. In addition there are multiple small foci of contrast pooling in the fundus the stomach. These findings are suggestive of mucosal erosions/erosive gastritis. 7. Unremarkable small bowel series. This procedure was performed by Chirag Harvey PA-C, and supervised by Dr. Morton Electronically signed by: Nadir Morton MD 07/16/2024 04:51 PM [facility]
--- OUTSIDE RECORDS SUMMARY | 2024-07-16 08:01 | XMS_ITS | Clinical Summary ---
Author Organization [employer] Address [address] [place] [address] Care Team Providers Care Clinical Review Nurse Name Role Phone Graham Jeffers MD Primary Care Prov ider Allergies No known active allergies Medications ondansetron (Zofran) 4 MG tablet TAKE 1 TABLET (4 MG) BY MOUTH EVERY 8 HOURS NEEDED FOR NAUSEA AND VOMITING 90 tablet 02/02/2024 Active Active Problems Problem Noted Date Diagnosed Date Encounter to establish care 10/25/2023 Assessment & Plan (10/25/2023 11:49 AM EDT): Patient has no previous medical conditions, he has never been hospitalized, last er visit over 20 year. Patient has been having cnstant episode of nausea/vomiting, weight loss over the past 6 months, he reported back over 2-3 months ago rectal bleeding. He decided to visit er on 10/20 due to worsening abdominal pain, nausea/vomiting. He was found with a colon mass (no report on chart) and was told to book a appointment with GI. Patient pain has remained, refers he was given zofran for nausea and has improved his symptoms (will be refilled). He did not knew until this week about his family hx colon cancer. Reviewed red flag to visit er. Mass of colon 10/25/2023 Assessment & Plan (10/25/2023 11:50 AM EDT): Will refer to GI stat for colonoscopy, will also refer to oncology Family History Medical History Relation Name Comments Colon polyps Father Kidney disease Father Liver disease Father Colon cancer Father's Sister Breast cancer Mother Colon cancer Paternal Grandfather Relation Name Status Comments Father Father's Sister Mother Paternal Grandfather Social History Tobacco Use Types Packs/Day Years Used Date Smoking Tobacco: Every Day Cigarettes 0.5 0.5 Smokeless Tobacco: Never Tobacco Cessation:Ready to Q uit: Not Asked; Counseling Given: Not Answered Comments:Patient used to smoke less than 1/2 pack a day for 5 years, stopped and restarted smoking 2 months ago Alcohol Use Standard Drinks/Week Comments Never 0 (1 standard drink = 0.6 oz pur e alcohol) Housing Stability Answer Date Recorded What is your housing situation today? I do not have housing (Staying with others, in a hotel, in a penitentiary, living outside on the street, on a beach, in a car, or in a park 03/24/[address] you li ve. Do you have problems with any of the following? None of the above 03/24/2023 Food Insecurity Answer Date Recorded Within the past 12 months, y ou worried that your food would run out before you got money to buy more: Often true 04/15/2023 Within the past 12 months,th e food you bought just didn't last and you didn't have enough money to get more: Often true Transportation Answer Date Recorded In the past 12 months, has l ack of transportation kept you from medical appts, meetings, work or from getting things needed for daily living? Yes, it has kept me from medical appointments or getting medications. 03/24/2023 Utilities Answer Date Recorded In the past 12 months, has t he electric, gas, oil or water company threatened to shut off services in your home? No 04/15/2023 Sex and Gender Information Value Date Recorded Sex Assigned at Male 02/21/2023 9:00 AM EDT Legal Sex Male 8:58 AM EDT Gender Identity Male 02/21/2023 9:00 AM EDT Sexual Orientation Don't know 02/21/2023 9: 00 AM EDT Plan of Treatment Health Maintenance Due Date Last Done Comments Depression Screening 1983 Lipid Panel 1983 Alcohol/Substance Use Screening 1995 Family Planning (PISQ) 1998 DTaP/Tdap/Td Vaccines (1 - Tdap) 2002 Hepatitis B Vaccines (1 of 3 - 19+ 3-dose series) 2002 Pneumococcal Vaccine: Pediat rics (0 to 5 Years) and At-Risk Patients (6 to 49) Years) (1 of 2 - PCV) 2002 COVID-19 Vaccine ( - 2023-2 5 season) 2024 Influenza Vaccine (#1) 2024 SDOH Screening 03/13/2024 03/13/2023 Tobacco Screening 10/24/2024 10/25/2023 Zoster Vaccines (1 of 2) 2033 RSV Patients and Pa tients Aged 60 years or older (1 - 1-dose 75+ series) 2058 HIV Screening Completed 12/26/2023 Hepatitis C Screening Completed 12/26/2023 HIB Vaccines Aged Out No longer eligi ble based on patient's age to complete this topic HPV Vaccines Aged Out No longer eligi ble based on patient's age to complete this topic Hepatitis A Vaccines Aged Out No long er eligible based on patient's age to complete this topic IPV Vaccines Aged Out No longer eligi ble based on patient's age to complete this topic Meningococcal Vaccine Aged Out No edgardo harish eligible based on patient's age to complete this topic RSV under 20 months Aged Out No longe r eligible based on patient's age to complete this topic Rotavirus Vaccines Aged Out No longer eligible based on patient's age to complete this topic Procedures Procedure Name Priority Date/Time Associated Diagnosis Comments HEPATITIS PANEL, GENERAL Routine 12/26/2023 10:51 AM EDT HIV 1/2 ANTIGEN/ANTIBODY, FOURTH GENERATION W/RFL Routine 12/26/2023 10:51 AM EDT from Last 3 Months or Most Recently Relevant to Health Maintenance Results * Hepatitis Panel, General (12/26/2023 10:51 AM EDT) Hepatitis A IgM Nonreactive Nonreactive [facility] Comment:IgM antibodies to FALL V not detected; does not exclude earlyacute or recovered HAV infection. ~Hepatitis B Surface Antibody REACTIVE Nonreactive [facility] Comment:REACTIVE: > 11.99 mI U/mL Hepatitis B Core Antibody Nonreactive Nonreactive [facility] Hepatitis C Antibody Nonreactive Nonreactive [facility] Comment:Antibodies to HCV no t detected; does not exclude early acuteHCV infection. Hepatitis B Surface Ag Negative Negative [facility] 12/26/2023 10:5 1 AM EDT 12/26/2023 10:51 AM EDT us Generic External Data Provider LAB BLOOD ORDERAB LES Final Result Performing Organization Address City/[facility]/ZIP Co de Phone Number [facility] [address] [place] [address] [phone] * HIV-1/2 Antigen and Antibodies, Fourth Generation, with Reflexes (12/26/2023 10:51 AM EDT) Pathologist [facility] HIV AB/AG Nonreactive Nonreactive [facility] Comment:HIV-1 p24 Ag and/or HIV-1/HIV-2 Ab not detected.A test result that is nonreactive does not exclude thepossibility of exposure to or infection with HIV-1 and/orHIV-2. Nonreactive results in this assay for individualswith prior exposure to HIV-1 and/or HIV-2 may be due toantigen and antibody levels that are below the limit ofdetection of this assay.The [employer] HIV Ag/Ab Combo assay result andsupplemental assay results should be interpreted inconjunction with the patient's clinical presentation,history and other laboratory results. If the results areinconsistent with clinical evidence, additional testing issuggested to confirm the result. 12/26/2023 10:5 1 AM EDT 12/26/2023 10:51 AM EDT us Generic External Data Provider LAB BLOOD ORDERAB LES Final Result Performing Organization Address [facility]/ZIP Co de Phone Number [facility] [address] [place] [address] [phone] from Last 3 Months or Most Recently Relevant to Health Maintenance Insurance [facility] C3 Care Teams Clinical Review Nurse Relationship Specialty Start Date End Date Graham Jeffers MD [address] [place] [id number] PCP - General Internal Medicine 10/25/23
--- OUTSIDE RECORDS SUMMARY | 2024-07-16 08:01 | XMS_ITS | Encounter Summary ---
Author Organization [employer] Address [address] [place] [address] Care Team Providers Care Gravity Prospecting Observer Name Role Phone Graham Jeffers MD Primary Care Prov ider Reason for Visit * Reason Onset Date Comments Results 01/08/2024 Encounter Details Date Type Department Care Team ([facility] st Contact Info) Description 01/08/2024 Telephone [facility] [address] [place] [address] Graham Jeffers MD [address] [place] [address] Results Social History Tobacco Use Types Packs/Day Years Used Date Smoking Tobacco: Every Day Cigarettes 0.5 0.5 Smokeless Tobacco: Never Comments:Patient used to smo ke less than 1/2 pack a day for [...] Don't know 02/21/2023 9: 00 AM EDT documented as of this encounter Miscellaneous Notes * Telephone Encounter - Tracy Mojica - 01/08/2024 1:02 PM EDT Tc from pt requesting MRI results , states they went to [facility]. Please contact at [phone] documented in this encounter Plan of Treatment Not on file documented as of this encounter Visit Diagnoses Not on filedocumented in this encounter Care Teams Gravity Prospecting Observer Relationship Specialty Start Date End Date Graham Jeffers MD [address] [place] [id number] PCP - General Internal Medicine 10/25/23 documented as of this encounter
--- OUTSIDE RECORDS SUMMARY | 2024-07-16 08:01 | XMS_ITS | Encounter Summary ---
Author Organization [employer] Address [address] [facility] [address] [facility] [address] [place] [address] Care Team Providers Care Technical Services Specialist Name Role Phone Graham Jeffers MD Primary Care Prov ider Reason for Visit * Reason Onset Date Comments New Patient Appt 02/21/2023 Encounter Details Date Type Department Care Team ([facility] st Contact Info) Description 02/21/2023 Telephone [facility] [address] [place] [address] Stephani Shaffer MD [address] [place] [address] New Patient Appt Social History Tobacco Use Types Packs/Day Years Used Date Smoking Tobacco: Never Assessed Sex and Gender Information Value Date Recorded Sex Assigned at Male 02/21/2023 9:00 AM EDT Legal Sex Male 8:58 AM EDT Gender Identity Male 02/21/2023 9:00 AM EDT Sexual Orientation Don't know 02/21/2023 9: 00 AM EDT documented as of this encounter Miscellaneous Notes * Telephone Encounter - Alyssapaloma CyrGonzalezjade Rosenthal - 02/21/2023 9:01 AM EDT PAR Laura Gonzalez called pt to Offer SALES NEGOTIATOR appt. Pt demographics and insurance information were verified. Kadi reports the following medical conditions: HTN Pt is currently taking medication: No HTN medication, but Yes to Physc meds( Celexa ). Kadi reports pt is being released from [facility] on 02/24/2023. Pt given SALES NEGOTIATOR appt with Dr. Shaffer on 03/27/2023. Pt will be sent appt reminder card and medical release form and agrees to complete and to return to medical records prior to SALES NEGOTIATOR appt. documented in this encounter Plan of Treatment Not on file documented as of this encounter Visit Diagnoses Not on filedocumented in this encounter Care Teams Technical Services Specialist Relationship Specialty Start Date End Date Graham Jeffers MD [address] [place] [phone] PCP - General Internal Medicine 10/25/23 documented as of this encounter
== END 2024-07-16 07:59 | disposition home or self-care (01) ==
LOC: HO.XRAY 07:58
PROVIDERS: Visit Provider Nurse Practitioner Family
DX: R10.13 Epigastric pain (principal); K21.9 Gastro-esophageal reflux disease without esophagitis; R11.10 Vomiting, unspecified
CPT/HCPCS: 74240; 74248

== ENCOUNTER → 2024-07-16 08:00 | Outpatient (BNV) | payer MEDICAID, SELFPAY | PROVIDERS: Visit Provider Physician Assistant Surgical | DX: K44.9 Diaphragmatic hernia without obstruction or gangrene (principal); K21.9 Gastro-esophageal reflux disease without esophagitis; K22.5 Diverticulum of esophagus, acquired | CPT/HCPCS: 74246; 74248 ==

== ENCOUNTER 2024-09-08 16:18 | Outpatient (AMB) | payer MEDICAID, SELFPAY ==
[2024-09-08 16:22] VITALS: BP 110/54; PULSE 62; O2SAT 98; BMI 23.7
--- NOTE | 2024-09-08 16:22 | MHC.OFFVIS ---
Vital Signs 09/08/24 16:22 Height 5 ft 11 in Weight 170 lb 3.15 oz BMI 23.7 BP 110/54 L Blood Pressure Location Rt brachial Position Sitting Pulse 62 Pulse Source Pulse Oximeter Pulse Oximetry (%) 98 Oxygen Delivery Method Room Air Intake Visit Reasons: FUV, review imaging. 6-8 weeks Intake Note: ESTABLISHED PATIENT for mgmt of IBS + GERD. Imaging done. Chief Complaint; C/O persistent abd pain, RUQ, described as sharp, stabbing pain . Pt reports this is intermittent and occurs throughout the week, a few times on average. Pt also reports loose stools w/o concern for hemorrhoids. Pt has been losing weight and has a general lack of appetite. No additional concerns reported. 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 6-8 weeks: Details: LAST VISIT Postprandial epigastric pain GERD (gastroesophageal reflux disease) Nausea Vomiting Diarrhea Colon abnormality Plan Patient will continue Nexium in the morning half an hour before breakfast. Avoid dietary triggers. Try Benefiber with probiotics to help bulk the stools. Patient will take sucralfate in the afternoon and at bedtime. Mirtazapine 1-2 hours before taking sucralfate at night time. Zofran sent to pharmacy. Staff helped assisting with Appointment for upper GI series and is scheduled next week. Patient will follow-up with me in 6 weeks. He will call if he will continue to have symptoms or experience any additional GI concerning symptoms. Patient is agreeable to this plan and verbalizes understanding of instructions. He was given the opportunity to ask questions and all questions answered. ? Thank you for allowing me to participate in his care Medications Refilled ondansetron HCl 4 mg PO Q6H PRN 20 tabs 0RF for nausea/vomiting K29.70, R11.0, R11.10 TODAY'S VISIT Patient is here for follow-up and to discuss upper GI series. Results discussed with patient. Possible esophagitis and gastritis. Patient continues to have epigastric pain postprandial abdominal bloating and diarrhea. Denies melena or hematochezia. Patient gained few lb since last visit. Able to tolerate some food. Patient continues to be under some stress at work as well as at home. New baby at home. Occasional nausea, controlled with Zofran for the most part. Patient reports occasional dyspepsia and dysphagia without odynophagia. [facility] Surgical History Hx of colonoscopy History of esophagogastroduodenoscopy (EGD) Family History Paternal Grandfather Colon cancer Paternal Grandfather Colon cancer Paternal Aunt Colon cancer Social History Patient Tobacco Use Status: Current everyday Tobacco user Tobacco use type: Cigarette Cigarette Packs Per Day: 0.5 Cigarettes Per Day: 10.0 Review of Systems Const Denies weight gain and Reports weight loss ENT Reports no additional complaints, Reports dysphagia and Denies odynophagia Card Reports no additional complaints Resp Reports no additional complaints GI Reports abdominal pain (Epigastric and left upper quadrant), Denies belching, Denies melena, Reports bloating, Denies change in bowel habits, Reports constipation, Reports dysphagia, Denies excessive flatus, Reports dyspepsia, Reports heartburn, Denies diarrhea, Reports loose stools, Reports nausea, Denies odynophagia and Reports vomiting Reports no additional complaints Musc Reports no additional complaints Neuro Reports no additional complaints Psych Reports no additional complaints Endo Reports no additional complaints Physical Exam Vital Signs: Last Vital Signs Pulse 62 09/08/24 16:22 BP 110/54 L 09/08/24 16:22 Pulse Ox 98 09/08/24 16:22 Oxygen Delivery Method Room Air 09/08/24 16:22 BMI result Body Mass Index 23.7 Const General: healthy appearing and no acute distress Orientation/consciousness: patient oriented x3 Resp Effort & Inspection: normal respiratory effort, able to speak in complete sentences, no tracheal deviation and symmetric chest movement Auscultation: clear to auscultation bilaterally Cardio Rate: regular rate GI Inspection: Yes normal to inspection and No distended Palpation (GI): Soft to palpation, not firm, nontender and No hepatosplenomegaly present Auscultation: normal bowel sounds General: Yes no CVA tenderness Back/Spine/Pelvis Back: no CVA tenderness Skin General skin exam: elasticity normal, turgor normal and dry skin Neuro General: patient oriented x3 Psych Appearance: grossly normal Mental Status: mental status grossly normal Results Reviewed Results Reviewed: UPPER GI SERIES BARIUM SWALLOW 07/16/2024 IMPRESSION: 1. Mildly patulous esophagus. 2. Mild granular appearance of the esophageal mucosa, suggestive of esophagitis. 3. Mild cricopharyngeal achalasia. 4. Tiny Zenker's diverticulum. 5. Small type I hiatal hernia with moderate to significant gastroesophageal reflux. 6. Thickened appearance of the gastric rugal folds. In addition there are multiple small foci of contrast pooling in the fundus the stomach. These findings are suggestive of mucosal erosions/erosive gastritis. 7. Unremarkable small bowel series. Assessment & Plan Assessment & Plan (1) Postprandial epigastric pain: Code(s): R10.13 - Epigastric pain (2) GERD (gastroesophageal reflux disease): Code(s): K21.9 - Gastro-esophageal reflux disease without esophagitis Qualifiers: Esophagitis presence: esophagitis presence not specified Qualified Code(s): K21.9 - Gastro-esophageal reflux disease without esophagitis (3) Nausea: Code(s): R11.0 - Nausea (4) Diarrhea: Code(s): R19.7 - Diarrhea, unspecified Qualifiers: Diarrhea type: functional diarrhea Qualified Code(s): K59.1 - Functional diarrhea Plan Patient will continue PPI. Avoid dietary triggers and late night snacking. Staying upright for minimal 3 hours after meals discussed with patient. Patient will start taking sucralfate at 14:00 and at bedtime. Avoid NSAIDs. Patient will be sent for upper endoscopy to re-evaluate. 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 Patient is agreeable to this plan and verbalizes understanding of instructions. He was given the opportunity to ask questions and all questions answered. Thank you for allowing me to participate in his care Medications: Refilled sucralfate 1 g PO BID 60 tabs 2RF R19.7 - Diarrhea, unspecified Coding Level of Care Code Est Pt Level 4 (45176) Complex EM visit Add On G2211 Diagnoses Postprandial epigastric pain R10.13 Gastroesophageal reflux disease, unspecified whether esophagitis present K21.9 Esophagitis presence: esophagitis presence not specified Nausea R11.0 Functional diarrhea K59.1 Diarrhea type: functional diarrhea Time Spent (min) 35 Comment 25 minutes spent with patient and additional 10 minutes spent reviewing his records
== END 2024-09-08 17:00 | disposition home or self-care (01) ==
LOC: HO.HGI 16:18
PROVIDERS: Visit Provider Nurse Practitioner Family
DX: R10.13 Epigastric pain (principal); K21.9 Gastro-esophageal reflux disease without esophagitis; R11.0 Nausea; K59.1 Functional diarrhea
CPT/HCPCS: 99214

== ENCOUNTER → 2024-09-08 16:18 | Outpatient (BNVA) | payer MEDICAID, SELFPAY | PROVIDERS: Visit Provider Nurse Practitioner Family | DX: K21.9 Gastro-esophageal reflux disease without esophagitis (principal); K59.1 Functional diarrhea; R10.13 Epigastric pain; R11.0 Nausea | CPT/HCPCS: 99212 ==

== ENCOUNTER 2025-01-22 18:34 | Emergency (ER) | payer MEDICAID, SELFPAY ==
--- NOTE | ~2025-01-22 | US_ITS ---
CLINICAL HISTORY: Left testicular pain, swelling Scrotal ultrasound with vascular interrogation Comparison: None available Findings: The right testis is normal in echotexture. Limited right microlithiasis. Mildly heterogeneous echotexture of the left testis without focal lesions. There is a left testicular appendix. Normal arterial/venous color Doppler and flow pattern on the right. Increased color doppler with normal flow pattern on the left. Right testis size, normal: 5.0 x 2.0 x 3.0 cm, volume of 15.4mL. Left testis size, mildly enlarged: 5.1 x 2.4 x 3.3 cm, volume of 20.5mL. Normal right epididymis. The left epididymis is increased in size and heterogeneous/decrease in echotexture with increased color doppler. Right scrotal fluid is within normal limits. Small left hydrocele. No varicocele. Impression: Left epididymo-orchitis. This document has been electronically signed by: Lindy Bonilla MD on 01/22/2025 19:38:43
--- NOTE | 2025-01-22 18:36 | ED.MALEGU ---
HPI - Male Genitourinary General Chief complaint: Urogenital-Male Stated complaint: UC sent pt over for ultrasound of left testicle Time Seen by Provider: 01/22/25 19:22 Source: patient Mode of arrival: ambulatory Limitations: no limitations History of Present Illness ED Provider: Nadir TONY HPI Narrative: The patient is a 39-year-old male presenting to the ED reporting yesterday he was fishing from a dock when he stepped backwards and fell onto a nearby boat, patient reports he fell straight backwards onto his buttocks, denies any straddle injury. The patient denies pain at the time of the fall, but reports waking this morning with pain in the left testicle with associated swelling and nausea. Patient reports feeling generally unwell today with inability to eat due to nausea and generalized malaise. The patient denies associated penile lesions or urethral discharge. The patient denies any abdominal pain or actual vomiting. The patient denies any new sexual partners, denies other recent injury/trauma. The patient denies associated fever, chest pain, shortness of breath, back pain, or dysuria. Related Data Home Medications ?Medication ?Instructions ?Recorded ?Confirmed citalopram 20 mg tablet 20 mg PO QAM 10/29/23 11/06/23 Previous Rx's ?Medication ?Instructions ?Recorded naproxen 500 mg tablet 500 mg PO BID PRN pain 7 days #14 10/21/23 tabs cholecalciferol (vitamin D3) 50 50 mcg PO DAILY #30 caps 11/14/23 mcg (2,000 unit) capsule capsaicin 0.1 % topical cream 1 appl topical BID #42.5 grams 12/26/23 yjadye-dimuynfn-eawxkmw 2 cap PO QID #200 caps 05/11/24 36,000-114,000-180,000 unit capsule,delay rel (Creon) esomeprazole magnesium 40 mg 40 mg PO DAILY #90 caps 07/16/24 capsule,delayed release sucralfate 1 gram tablet 1 g PO BID #60 tabs 09/08/24 ondansetron HCl 4 mg tablet 4 mg PO Q6H PRN for 10/27/24 nausea/vomiting #20 tabs mirtazapine 7.5 mg tablet 7.5 mg PO BEDTIME #30 tabs 11/22/24 acetaminophen 500 mg capsule 1,000 mg (2 x 500 mg) PO .q8 PRN 08/09/25 fever or pain #30 caps doxycycline hyclate 100 mg capsule 100 mg PO BID #20 caps 01/22/25 ibuprofen 600 mg tablet 600 mg PO Q8H PRN fever or pain 01/22/25 #30 tabs Allergies Allergy/AdvReac Type Severity Reaction Status Date / Time No Known Allergies Allergy Verified 01/22/25 18:40 Review of Systems Review of Systems: Yes all other systems are reviewed and are negative [facility] Past Medical History Surgical History Hx of colonoscopy History of esophagogastroduodenoscopy (EGD) Family History Family History Paternal Grandfather Colon cancer Paternal Grandfather Colon cancer Paternal Aunt Colon cancer Social History Social History Patient Tobacco Use Status: Current everyday Tobacco user Tobacco use type: Cigarette Cigarette Packs Per Day: 0.5 Cigarettes Per Day: 10.0 Smoked in Last 30 Days: Yes Use of substances other than those prescribed or required for medical reasons: No Advance Directives: No Advance Directives Information Provided: No Physical Exam Vital Signs: Vital Signs: Last Vital Signs Pulse 70 01/22/25 18:37 Resp 18 01/22/25 18:37 BP 108/56 L 01/22/25 18:37 Pulse Ox 99 01/22/25 18:37 BMI result Body Mass Index 21.9 CONSTITUTIONAL: The patient appears non-toxic, well nourished and in no acute distress. Vital signs as documented. HEAD: Atraumatic, normocephalic. EYES: EOMs grossly intact, pupils equal, conjunctiva clear, no exudate. ENT: Nares patent, no discharge. Airway patent, no audible stridor, visible mucosa is pink and moist without noted lesions. NECK: Trachea is midline, no obvious masses or gross abnormalities. CHEST: Symmetric movement, normal appearance. LUNGS: LS present and CTAB, no w/r/r. Non-labored work of breathing. CARDIAC: Regular Rhythm, S1/S2 appreciated, no murmurs, rubs or gallops. ABDOMEN: Abdomen soft and non-tender x4 quadrants, no palpable masses or organomegaly. : There is moderate swelling and tenderness of the left testicle, with soft mass palpated adjacent to the testicle, no overlying erythema or contusion. No penile lesions or urethral discharge. No palpable inguinal masses. EXTREMITIES: Normal tone, moves all extremities spontaneously without reported pain. No obvious acute injury or deformity noted. NEURO: Alert and oriented x3, CN II-XII appear grossly intact. Cerebellar Functioning grossly intact. No obvious sensory or motor deficits. Speech clear and appropriate. PSYCH: normal affect, appropriate eye contact, fluid speech, with appropriate response to questioning. No reported suicidality or homicidality. SKIN: Warm, dry, color appropriate, normal turgor. No rashes noted. Course Course Course Narrative: This is an RME: Additional HPI, ROS, PE not included below will be deferred to primary provider. RME assessment and note performed by: Gail Grant PA-C This is a 68-qllt-kxt-male, with a hx of pancreas issues , who presents to the ER with complaints of left testicular pain. Reports that yesterday he fell. Reports that he was fishing on a dock yesterday and fell backwards onto his buttocks. No LOC or head strike. Not on anticoagulation. Endorsing nausea. Reports generalized weakness, headache. Patient also states that he feels as though he is coming down with something, states that his skin feels very sensitive. No urinary symptoms. Plan: Labs, EKG, US scrotum, further ER eval needed Medical Decision Making Medical Decision Making MDM Narrative: 7:33 PM 01/22/2025 (Dani TONY): The patient is a 39-year-old male presenting to the ED for evaluation of left testicular pain after falling from a dock onto a boat yesterday. No report of straddle injury. The patient's exam reveals swelling of the left testicle, most likely the epididymis without overlying erythema. Patient's exam concerning for possible hydrocele versus orchitis/epididymitis. The patient's ultrasound has been obtained and is pending interpretation. The patient reports taking ibuprofen approximately 1 hour prior to arrival in the ED, was offered additional pain management and declined. The patient was ordered for EKG and cardiac workup in triage due to reported fatigue, patient denies any chest pain, EKG is nonischemic. We will follow up laboratory evaluation and ultrasound. 8:25 PM 01/22/2025 (Dani TONY): The patient is laboratory evaluation is reassuring, no acute abnormalities. The patient's ultrasound shows evidence of acute epididymitis/orchitis. The patient denies any new sexual partners, however has had no recent instrumentation or catheterization, no other indication of non STI related infection. Patient will be treated with single dose IM ceftriaxone followed by 10 days of doxycycline. Patient will be advised to avoid sexual intercourse until completion of antibiotics and resolution of symptoms. Lab Data MDM Lab Attestation statement: I reviewed the patient's lab results. 01/22/25 19:17 01/22/25 19:17 Labs: Lab Results 01/22/25 01/22/25 Range/Units 19:16 19:17 WBC 6.7 (4.8-10.8) X10*3/uL RBC 4.90 (4.60-5.80) X10*6/uL Hgb 14.2 (14.0-18.0) g/dl Hct 40.6 L (42.0-52.0) % MCV 82.9 (80.0-98.0) fL MCH 29.0 (27.0-33.0) pg MCHC 35.0 (31.0-36.0) g/dl RDW 12.9 (11.0-16.0) % Plt Count 179 D (160-400) X10*3/uL MPV 9.2 L (9.4-12.4) fL Immature Gran % (Auto) 0.3 (0.0-0.4) % Neut % (Auto) 81.0 H (45-73) % Lymph % (Auto) 10.6 L (20-40) % [place] % (Auto) 6.4 (2-11) % Eos % (Auto) 1.6 (0-4) % Baso % (Auto) 0.1 (0-2) % Lymph # (Auto) 0.7 L (1.2-4.9) X10*3/uL [place] # (Auto) 0.4 (0.1-1.2) X10*3/uL Eos # (Auto) 0.1 (0.0-0.4) X10*3/uL Baso # (Auto) 0.0 (0.0-0.2) X10*3/uL Abs Immat Gran (auto) 0.02 (0.00-0.03) X10*3/uL Absolute Neuts (auto) 5.4 (2.0-8.3) x10*3/uL Absolute Nucleated RBC 0.000 (0.0-0.012) X10*3/uL Nucleated RBC % (auto) 0.0 (0.0-0.2) /100WBC Sodium 140 (135-145) mmol/L Potassium 3.6 (3.3-5.1) mmol/L Chloride 106 (96-108) mmol/L Carbon Dioxide 26 (22-29) mmol/L Anion Gap 12 (12-20) BUN 17 H (9-16) mg/dL Creatinine 0.94 (0.5-1.4) mg/dL Estim Creat Clear Calc 106.9 Estimated GFR > 60 Random Glucose 87 (60-115) mg/dL Calcium 8.7 D (8.4-10.2) mg/dL Magnesium 1.9 (1.6-2.6) mg/dL Total Bilirubin 0.3 (0.0-1.0) mg/dL Direct Bilirubin 0.1 (0.0-0.5) mg/dL AST 34 (5-37) U/L ALT 32 (0-40) U/L Alkaline Phosphatase 65 (39-117) U/L Troponin I High Sens < 2.7 (<3.5-35.0) ng/L Total Protein 6.7 (6.5-8.0) g/dL Albumin 4.3 (3.5-5.0) g/dL Lipase 33 (8-78) U/L Influenza Type A (PCR) NEGATIVE (Negative) Influenza Type B (PCR) NEGATIVE (Negative) RSV RNA Qual (PCR) NEGATIVE (Negative) SARS-CoV-2 RNA (RT-PCR) NEGATIVE (Negative) Independent Interpretation I performed an independent interpretation of an: EKG (EKG shows sinus rhythm with a rate of 70, no evidence of acute ischemia, no ST elevation, no ectopy. QTC 421. There is an incomplete right bundle-branch block. No previous for comparison.) Discharge Plan Discharge Clinical Impression: Orchitis and epididymitis Patient Disposition: Home, Self-Care Instructions: Epididymo-Orchitis (ED) Additional Instructions: Thank you for choosing [facility] for your care today. At this time there is no indication for admission to the hospital or continued ED observation, and it is safe to discharge you home. Your ultrasound today indicates that your pain is secondary to an infection of your left testicle and epididymis, the supporting structure for your testicle. The exact cause of this infection is not entirely clear, we are treating you with 2 antibiotics, ceftriaxone, and doxycycline. The ceftriaxone as a single dose antibiotic which has been given in the ED, however it is extremely important that you take doxycycline twice daily for the next 10 days. Please avoid any sexual intercourse until completion of your antibiotics and resolution of your symptoms. You may take alternating (staggered) doses of ibuprofen 600mg and Tylenol 1000mg every 4 hours as needed for any additional pain. You may apply ice for 20 minutes every hour as needed. Please wear very supportive underwear. Please stay well hydrated and get plenty of rest. Please follow up with your primary care physician for re-evaluation, urology referral as indicated, additional management of your symptoms, and continued preventative care. If you do not have a primary care physician, please call the [facility] at [phone] to establish a new primary care physician. While waiting to establish your new primary care physician, you can call our Walk[facility] at [phone] for non-emergency needs. Please return to the emergency department if you develop a severe or sudden change in your symptoms, a fever over 100.4 that does not improve with Tylenol or Ibuprofen, recurrent vomiting, or any other new or worsening symptoms or concerns. Prescriptions: New ibuprofen 600 mg tablet 600 mg PO Q8H PRN (Reason: fever or pain) Qty: 30 0RF acetaminophen 500 mg capsule 1,000 mg PO .q8 PRN (Reason: fever or pain) Qty: 30 0RF doxycycline hyclate 100 mg capsule 100 mg PO BID Qty: 20 0RF No Action cholecalciferol (vitamin D3) 50 mcg (2,000 unit) capsule 50 mcg PO DAILY Qty: 30 3RF Creon 36,000-114,000- 180,000 unit capsule,delayed release(DR/EC) 2 cap PO QID Qty: 200 3RF esomeprazole magnesium 40 mg capsule,delayed release(DR/EC) 40 mg PO DAILY Qty: 90 1RF ondansetron HCl 4 mg tablet 4 mg PO Q6H PRN (Reason: for nausea/vomiting) Qty: 20 0RF mirtazapine 7.5 mg tablet 7.5 mg PO BEDTIME Qty: 30 1RF naproxen 500 mg tablet 500 mg PO BID PRN (Reason: pain) 7 Days Qty: 14 0RF citalopram 20 mg tablet 20 mg PO QAM capsaicin 0.1 % cream 1 appl topical BID Qty: 42.5 0RF Rx Instructions: do not wash area for at least 30 min after application sucralfate 1 gram tablet 1 g PO BID Qty: 60 2RF Referrals: Max,[facility] [Primary Care Provider, Medical] Clinical Impression: Orchitis and epididymitis Print Language: Chilean
[2025-01-22 18:37] VITALS: BP 108/56; PULSE 70; RESP 18; O2SAT 99; BMI 21.9
--- NOTE | 2025-01-22 18:41 | ECG_ITS ---
Test Reason : WEAKNESS Blood Pressure : */* mmHG Vent. Rate : 70 BPM Atrial Rate : 70 BPM P-R Int : 146 ms QRS Dur : 108 ms QT Int : 390 ms P-R-T Axes : 50 58 33 degrees QTcB Int : 421 ms Normal sinus rhythm Incomplete right bundle branch block Borderline ECG No previous ECGs available Referred By: Gail Grant Electronically Signed By: CARRI RASHEED
[2025-01-22 19:30] LABS: MANUAL DIFF FLAG NO
[2025-01-22 19:42] LABS: Hematocrit 40.6 % (42.0-52.0); Hemoglobin 14.2 g/dl (14.0-18.0); Imm Gran Abs Auto 0.02 X10*3/uL (0.00-0.03); Imm Gran Pct Auto 0.3 % (0.0-0.4); Lymphocytes Absolute Auto 0.7 X10*3/uL (1.2-4.9); Mean Corpuscular HGB Conc 35.0 g/dl (31.0-36.0); Mean Corpuscular Hemoglobin 29.0 pg (27.0-33.0); Mean Corpuscular Volume 82.9 fL (80.0-98.0); NRBC Abs Auto 0.000 X10*3/uL (0.0-0.012); NRBC Pct Auto 0.0 /100WBC (0.0-0.2); Platelet Count 179 X10*3/uL (160-400); Red Blood Count 4.90 X10*6/uL (4.60-5.80); White Blood Count 6.7 X10*3/uL (4.8-10.8)
[2025-01-22 19:48] LABS: Alanine Aminotransferase 32 U/L (0-40); Albumin Level 4.3 g/dL (3.5-5.0); Alkaline Phosphatase 65 U/L (39-117); Anion Gap 12 (12-20); Aspartate Amino Transferase 34 U/L (5-37); Blood Urea Nitrogen 17 mg/dL (9-16); Calcium 8.7 mg/dL (8.4-10.2); Carbon Dioxide 26 mmol/L (22-29); Chloride 106 mmol/L (96-108); Creatinine Clr Calc Pharmacy 106.9; Estimated Glomerular Filt Rate > 60; Lipase 33 U/L (8-78); Magnesium 1.9 mg/dL (1.6-2.6); Potassium 3.6 mmol/L (3.3-5.1); Sodium 140 mmol/L (135-145); Total Protein 6.7 g/dL (6.5-8.0)
[2025-01-22 20:05] LABS: Troponin-I High Sensitivity < 2.7 ng/L (<3.5-35.0)
[2025-01-22 20:08] LABS: Resp Syncy Virus RNA Qual PCR NEGATIVE (Negative); SARS COV2 PCR INHOUSE NEGATIVE (Negative)
[2025-01-22 20:42] VITALS: BP 106/66; PULSE 69; RESP 18; TEMP 37.2; O2SAT 98
== END 2025-01-22 20:45 | disposition home or self-care (01) ==
PROVIDERS: Physician Assistant Medical; Emergency Provider Emergency Medicine
DX: N45.3 Epididymo-orchitis (principal); N50.812 Left testicular pain; R51.9 Headache, unspecified; R53.1 Weakness; I45.19 Other right bundle-branch block; Z03.818 Encounter for observation for suspected exposure to other biological agents ruled out; F17.210 Nicotine dependence, cigarettes, uncomplicated
CPT/HCPCS: 36415; 76870; 80048; 80076; 83690; 83735; 84484; 85025; 87637; 93005; 93975; 96372; 99284; J0696

== ENCOUNTER → 2025-01-22 18:40 | Outpatient (BNV) | payer MEDICAID, SELFPAY | PROVIDERS: Emergency Provider Emergency Medicine; Visit Provider Radiology Diagnostic Radiology | DX: N45.3 Epididymo-orchitis (principal) | CPT/HCPCS: 93975 ==

== ENCOUNTER → 2025-01-22 18:41 | Outpatient (BNV) | payer MEDICAID, SELFPAY | PROVIDERS: Emergency Provider Emergency Medicine; Visit Provider Internal Medicine | DX: I45.10 Unspecified right bundle-branch block (principal) | CPT/HCPCS: 93010 ==